=== PATIENT | female | born 1985 ===

== ENCOUNTER 2020-08-07 06:18 | Outpatient (REF) | payer OTHER, SELFPAY | END 2020-08-07 06:19 | disposition home or self-care (01) | LOC: HO.LAB 06:18 | PROVIDERS: PCP Internal Medicine; Visit Provider Internal Medicine | DX: Z20.828 Contact with and (suspected) exposure to other viral communicable diseases (principal) | CPT/HCPCS: C9803; U0003 ==

== ENCOUNTER 2022-03-13 20:19 | Day surgery (SDC) | payer OTHER, SELFPAY ==
[2022-03-13] VITALS (11 sets, daily range): BP systolic 125–171; BP diastolic 75–106; PULSE 80–94; RESP 13–18; TEMP 36.6–36.8; O2SAT 97–100; BMI 34.4
--- NOTE | 2022-03-13 20:54 | ED.SKABFB ---
HPI - Skin/Abscess/Foreign Bdy General Chief complaint: Dyspnea Stated complaint: foreign object in esophagus Time Seen by Provider: 03/13/22 20:40 Source: patient Mode of arrival: ambulatory Limitations: no limitations History of Present Illness HPI narrative: 36-year-old female who presents emergency department for evaluation of a esophageal food impaction. Patient states she was eating beef tips. She states that she did eat a large piece of meat that got immediately stuck in her throat she states she coughed and felt like she was choking. She currently is having difficulty swallowing her saliva and she cannot drink any liquids. She points to her mid chest when she is asked to localize the discomfort. She describes it as a constant, pressure sensation which is moderate to severe in intensity. Patient states she has been experiencing heartburn like symptoms over the past 2 months. She states she has had some difficulty swallowing solids but not liquids. She has never had a food impaction before. She states that over the last year she has gained 40 lb. complaint: foreign body Onset (ago): hour(s) (1) Location: chest (S often) Severity: severe Severity scale (1-10): 8 Quality: other (Pressure) Pain Consistency: constant Relieving factors: none Exacerbating factors: other (Drinking fluid) Context: other (Patient has swelled large piece of meat) Associated symptoms: nausea Treatments prior to arrival: none Related Data Previous Rx's Medication Instructions Recorded Adderall XR 25 mg capsule,extended 25 mg PO DAILY #28 caps 01/31/22 release (dextroamphetamine-amphetamine) Allergies Allergy/AdvReac Type Severity Reaction Status Date / Time No Known Allergies Allergy Mild NOT Verified 01/31/22 14:25 APPLICABLE Review of Systems Review of Systems: Yes all other systems are reviewed and are negative [facility] Past Medical History [facility] Narrative: Social history: She denies tobacco use. She states that she drinks 1 alcoholic beverage a per week. She denies drug use. Medical History ADHD Obesity (BMI 30-39.9) Surgical History History of section Family History Family History Father No problems noted. Mother No problems noted. Maternal Grandfather Lung cancer Social History Social History Housing: House Patient Tobacco Use Status: Never used Tobacco e-Cigarette/Vaping Use: Never Used Second Hand Smoke Exposure: No Patient : No service: No Current occupational status: employed Cognitive needs: No Hearing needs: No Vision needs: No Physical Exam Vital Signs: Vital Signs: Last Vital Signs Pulse 80 03/13/22 22:02 Resp 13 03/13/22 22:02 BP 171/106 H 03/13/22 21:43 Pulse Ox 99 03/13/22 22:02 O2 Del Method 03/13/22 22:02 BMI result Body Mass Index 34.4 Const: Other: Awake, alert, female patient, she appears to be anxious, she appears to be in distress secondary to her chest pain Orientation/consciousness: oriented to person and oriented to place HEENT: Head: Yes normal to inspection, Yes normocephalic and Yes atraumatic Ears: external ears normal General nose exam: Normal external nose present Face and sinus: Yes normal facial exam Mouth: Normal oral and palatal mucosa present Throat: Yes posterior oropharynx normal Eyes: General: appearance normal, both eyes and all related structures Pupils: Equal, round and reactive pupils present Neck: Neck: Yes normal visual inspection, Yes no lymphadenopathy, Yes trachea midline and Yes supple Chest: Chest palpation & inspection: normal inspection of the chest and normal palpation of entire chest wall Resp: Effort & Inspection: normal respiratory effort and able to speak in complete sentences Auscultation: clear to auscultation bilaterally Cardio: Rate: regular rate Rhythm: regular rhythm Heart sounds: S1 normal heart sound present, S2 normal heart sound present and no murmurs GI: Inspection: Yes normal to inspection Palpation (GI): Soft to palpation, nontender and no guarding Auscultation: normal bowel sounds : General: Yes no CVA tenderness Back/Spine/Pelvis: Back: no CVA tenderness Skin: General skin exam: no rashes or lesions noted Neuro: General: oriented to person and oriented to place Cranial nerves: Yes Equal, round and reactive pupils present Cognition (Neuro): normal cognition Motor exam (neuro): 5/5 motor strength present throughout Extrem: General: Yes normal to inspection Psych: Appearance: grossly normal Speech and movement: Normal speech and movement present Affect: normal affect Attitude: cooperative Thought process: Normal thought process present Thought content: Normal thought content present Course Course Course Narrative: 2057: 36-year-old female who presents emergency department for evaluation of esophageal food impaction after eating a large piece of steak, this occurred 1 hour prior to coming to the emergency department. Patient states she has had increased heartburn symptoms over the past 2 months but has not taken any antacids. She has had difficulty swallowing solids but not liquids. This is her 1st episode of a esophageal food impaction. She has had a 40 lb weight gain over 1 year. She did appear to be anxious and in distress secondary to her chest discomfort. I ordered Ativan 1 mg IV, morphine 4 mg IV and normal saline x1 L. I did discuss the patient's presentation with the covering gastrologist, Dr. Colon. He is going to come to the emergency department, evaluate the patient take the patient to endoscopy. The patient will be kept NPO. 2206: The patient got some relief of her discomfort with the above medications. The patient will be transferred to surgery and will be dispositioned from the recovery room. MDM - Skin/Abscess/Foreign Bdy Lab Data Result diagrams: 03/13/22 21:03 03/13/22 21:03 Labs: Lab Results 03/13/22 03/13/22 03/13/22 Range/Units 21:03 21:03 21:03 WBC 8.9 (4.8-10.8) X10*3/uL RBC 4.92 (4.20-5.50) X10*6/uL Hgb 14.0 (12.0-16.0) g/dl Hct 42.0 (37.0-47.0) % MCV 85.4 (80.0-98.0) fL MCH 28.5 (27.0-33.0) pg MCHC 33.3 (31.0-35.0) g/dl RDW 12.4 (11.0-16.0) % Plt Count 270 (160-400) X10*3/uL MPV 9.8 (9.4-12.3) fL Immature Gran % (Auto) 0.2 (0.0-0.4) % Neut % (Auto) 65.3 (45-73) % Lymph % (Auto) 25.8 (20-40) % [place] % (Auto) 5.2 (2-11) % Eos % (Auto) 3.1 (0-4) % Baso % (Auto) 0.4 (0-2) % Lymph # (Auto) 2.3 (1.2-4.9) X10*3/uL [place] # (Auto) 0.5 (0.1-1.2) X10*3/uL Eos # (Auto) 0.3 (0.0-0.4) X10*3/uL Baso # (Auto) 0.0 (0.0-0.2) X10*3/uL Abs Immat Gran (auto) 0.02 (0.00-0.03) X10*3/uL Absolute Neuts (auto) 5.8 (2.0-8.3) x10*3/uL Absolute Nucleated RBC 0.000 (0.0-0.012) X10*3/uL Nucleated RBC % (auto) 0.0 (0.0-0.2) /100WBC Sodium 140 (135-145) mmol/L Potassium 4.5 (3.3-5.1) mmol/L Chloride 103 (96-108) mmol/L Carbon Dioxide 29 (22-29) mmol/L Anion Gap 13 (12-20) BUN 11 (9-16) mg/dL Creatinine 0.87 (0.5-1.4) mg/dL Estim Creat Clear Calc 108.5 Estimated GFR > 60 Random Glucose 140 H (60-115) mg/dL Calcium 9.6 (8.4-10.2) mg/dL Total Bilirubin 0.2 (0.0-1.0) mg/dL AST 25 (5-31) U/L ALT 41 H (0-31) U/L Alkaline Phosphatase 83 (39-117) U/L Total Protein 7.3 (6.5-8.0) g/dL Albumin 4.7 (3.5-5.0) g/dL COVID-19 (MANE) Negative (Negative) COVID-19 Clin Com See Note Discharge Plan Discharge Clinical Impression: Esophageal obstruction due to food impaction Patient Disposition: Xfer Other Transfer Details: Transfer to surgery Prescriptions: No Action dextroamphetamine-amphetamine [Adderall XR] 25 mg capsule,extended release 24hr 25 mg PO DAILY Qty: 28 0RF
[2022-03-13 21:13] LABS: MANUAL DIFF FLAG NO
[2022-03-13 21:18] LABS: Basophils Percent Auto 0.4 % (0-2); Eosinophils Absolute Auto 0.3 X10*3/uL (0.0-0.4); Eosinophils Percent Auto 3.1 % (0-4); Imm Gran Abs Auto 0.02 X10*3/uL (0.00-0.03); Imm Gran Pct Auto 0.2 % (0.0-0.4); Lymphocytes Absolute Auto 2.3 X10*3/uL (1.2-4.9); Lymphocytes Percent Auto 25.8 % (20-40); Mean Corpuscular HGB Conc 33.3 g/dl (31.0-35.0); Mean Corpuscular Hemoglobin 28.5 pg (27.0-33.0); Mean Corpuscular Volume 85.4 fL (80.0-98.0); Mean Platelet Volume 9.8 fL (9.4-12.3); Monocytes Absolute Auto 0.5 X10*3/uL (0.1-1.2); Monocytes Percent Auto 5.2 % (2-11); Neutrophils Absolute Auto 5.8 x10*3/uL (2.0-8.3); Neutrophils Percent Auto 65.3 % (45-73); Platelet Count 270 X10*3/uL (160-400); Red Blood Count 4.92 X10*6/uL (4.20-5.50); Red Cell Distribution Width 12.4 % (11.0-16.0); White Blood Count 8.9 X10*3/uL (4.8-10.8)
[2022-03-13 21:30] LABS: Alanine Aminotransferase 41 U/L (0-31); Albumin Level 4.7 g/dL (3.5-5.0); Alkaline Phosphatase 83 U/L (39-117); Anion Gap 13 (12-20); Aspartate Amino Transferase 25 U/L (5-31); Bilirubin Total 0.2 mg/dL (0.0-1.0); Blood Urea Nitrogen 11 mg/dL (9-16); Calcium 9.6 mg/dL (8.4-10.2); Carbon Dioxide 29 mmol/L (22-29); Chloride 103 mmol/L (96-108); Creatinine Clr Calc Pharmacy 108.5; Estimated Glomerular Filt Rate > 60; Glucose Random 140 mg/dL (60-115); Potassium 4.5 mmol/L (3.3-5.1); Sodium 140 mmol/L (135-145); Total Protein 7.3 g/dL (6.5-8.0)
[2022-03-13 21:33] LABS: COVID-19 Test Negative (Negative)
[2022-03-13] MEDS: Morphine Sulfate 4 MG/ML CARTRIDGE IVPUSH (21:39)
[2022-03-13] MEDS: LORazepam 2 MG/ML VIAL 1 MG IVPUSH (21:39)
[2022-03-13] MEDS: 0.9 % Sodium Chloride 1,000 ML 999 ML IV (21:39)
--- NOTE | 2022-03-13 21:56 | HO.ANESPROP2 ---
[facility] Active Problems Active Problems: All Active Problems (Updated 10/18/21 @ 13:46 by Rasheed Root MD) Cervical cancer screening (Acute) Generalized anxiety disorder (Acute) Obesity (BMI 30-39.9) (Acute) ADHD (Acute) Past Medical History Medical History ADHD Obesity (BMI 30-39.9) Functional capacity: independent ambulation Patient : No Family History Family History Father No problems noted. Mother No problems noted. Maternal Grandfather Lung cancer Family history of problems with anesthesia: No Surgical History Surgical History History of section History of Problems with Anesthesia: No Social History Social History Housing: House Patient Tobacco Use Status: Never used Tobacco e-Cigarette/Vaping Use: Never Used Second Hand Smoke Exposure: No service: No Current occupational status: employed Cognitive needs: No Hearing needs: No Vision needs: No Meds Allergies Allergy/AdvReac Type Severity Reaction Status Date / Time No Known Allergies Allergy Mild NOT Verified 01/31/22 14:25 APPLICABLE Exam Exam Date and Time: March 13, [id number] Height,Weight and Vital Signs: Height 5 ft 7 in Weight 99.79 kg Last Vital Signs Pulse 89 03/13/22 21:43 Resp 14 03/13/22 21:43 BP 171/106 H 03/13/22 21:43 Pulse Ox 100 03/13/22 21:43 O2 Del Method 03/13/22 21:43 Pertinent Lab Results Pertinent Lab Results: Laboratory Tests 03/13/22 03/13/22 03/13/22 21:03 21:03 21:03 WBC 8.9 RBC 4.92 Hgb 14.0 Hct 42.0 MCV 85.4 MCH 28.5 MCHC 33.3 RDW 12.4 Plt Count 270 MPV 9.8 Immature Gran % (Auto) 0.2 Neut % (Auto) 65.3 Lymph % (Auto) 25.8 [place] % (Auto) 5.2 Eos % (Auto) 3.1 Baso % (Auto) 0.4 Lymph # (Auto) 2.3 [place] # (Auto) 0.5 Eos # (Auto) 0.3 Baso # (Auto) 0.0 Abs Immat Gran (auto) 0.02 Absolute Neuts (auto) 5.8 Absolute Nucleated RBC 0.000 Nucleated RBC % (auto) 0.0 Sodium 140 Potassium 4.5 Chloride 103 Carbon Dioxide 29 Anion Gap 13 BUN 11 Creatinine 0.87 Estim Creat Clear Calc 108.5 Estimated GFR > 60 Random Glucose 140 H Calcium 9.6 Total Bilirubin 0.2 AST 25 ALT 41 H Alkaline Phosphatase 83 Total Protein 7.3 Albumin 4.7 COVID-19 (MANE) Negative COVID-19 Clin Com See Note Assessment and Plan Final Anesthetic Review Family History of Problems with Anesthesia: No History of Problems with Anesthesia: No
--- NOTE | 2022-03-13 22:11 | MHC.SHP ---
Pre-Procedural Eval Section A Date of Service: 03/13/22 Section B Chief Complaint: foreign object in esophagus Details of Present Illness: see consult, and er notes Relevant Family History (Specify if Yes): No Relevant Social History: None Present Medications: see Short Stay Collaborative assessment Medical History: No relevant PMH History of Previous Operations: No relevant previous surgery Allergies: Allergies Allergy/AdvReac Type Severity Reaction Status Date / Time No Known Allergies Allergy Mild NOT Verified 01/31/22 14:25 APPLICABLE Review of Systems Sugical H&P ROS: Negative: Constitution, Cardiovascular, Respiratory, Neurological, Psychiatric, Hem-Onc, Allergic/Immunologic, Gastrointestinal, Genitourinary, Musculoskeletal, Integumentary, Endocrine and Eyes/Ears/Nose/Throat Exam Surgical H&P Exam: Normal: HEENT, Normal: Heart, Normal: Lungs, Normal: Extremities, Normal: Abdomen, Normal: Skin and Normal: Neurological Plan Diagnosis/Plan: Unchanged I have reviewed the history and physical and performed a pertinent physical examination on my patient. No changes have occurred unless specified.
--- NOTE | 2022-03-13 23:16 | CONS_ITS ---
DATE OF SERVICE: 03/13/2022 REFERRING PHYSICIAN: JULIO MORRISON REASON FOR CONSULTATION: Esophageal foreign body. HISTORY OF PRESENT ILLNESS: The patient is a pleasant 36-year-old woman, seen today in consultation after developing a meat impaction with esophageal obstruction about 1 hour prior to arrival at the emergency department. She was ingesting steak when this became lodged at her EG junction. Since that time, she has been unable to handle her secretions and unable to swallow. She was evaluated in the emergency department by Dr. Morrison. Lab work was done including electrolytes and CBC, which are reviewed. She was treated with glucagon with no improvement and the decision was made to proceed to an endoscopy. She also received morphine and lorazepam for anxiety and discomfort. PAST MEDICAL HISTORY: 1. ADHD with history of anxiety. 2. Elevated BMI. 3. sections CURRENT MEDICATIONS: Her current medication list is reviewed in the chart. At home she is on Adderall. ALLERGIES: THERE ARE NONE REPORTED. FAMILY HISTORY: Positive for irritable bowel syndrome, but no esophageal cancers. SOCIAL HISTORY: She uses marijuana, last earlier today. She denies use of other substances. REVIEW OF SYSTEMS: SKIN: No pruritus. HEENT: Negative. CARDIOPULMONARY: No shortness of breath or chest pain. GASTROINTESTINAL: As above. She has had some intermittent difficulty with solids over the past month, but no truly progressive dysphagia. She does get rare episodes of reflux, which does not require any treatment. GENITOURINARY: Negative. NEUROPSYCHIATRIC: Negative. PHYSICAL EXAMINATION: GENERAL: Shows a pleasant female, sitting comfortably in the stretcher, spitting into a bag. VITAL SIGNS: Stable. SKIN: Anicteric. HEENT: Shows no scleral icterus. NECK: Without lymphadenopathy or thyromegaly. LUNGS: Clear. HEART: Shows regular rate and rhythm. S1, S2. No murmur. ABDOMEN: Soft without focal masses or tenderness. Bowel sounds are present. No organomegaly is noted. EXTREMITIES: Without edema. LABORATORY DATA: Reviewed. IMPRESSION: Foreign body of the esophagus. I have discussed endoscopy with her including risks and benefits. She understands these and agrees to proceed. This will be done shortly. MD MCKAYLA Fowler/FERNANDA / [id number] [facility] HOSPITALSanjuana
--- NOTE | 2022-03-13 23:45 | PM.OP ---
Brief Operative Note Date of Service: 03/13/22 Pre-op diagnosis: esophageal fb Post-op diagnosis: same Procedure: EGD Surgeon: El Colon Anesthesia: MAC Was an Medical Billing Supervisor used for this Procedure?: No Estimated blood loss (mL): 2 Pathology: none sent Condition: stable Disposition: PACU
--- NOTE | 2022-03-14 02:42 | OP_ITS ---
SURGEON: El Colon MD INDICATIONS: Meat impaction with esophageal obstruction. PREOPERATIVE DIAGNOSIS: POSTOPERATIVE DIAGNOSIS: PROCEDURE PERFORMED: Upper endoscopy with removal of foreign body. ESTIMATED BLOOD LOSS: COMPLICATIONS: ANESTHESIA: ASSISTANTS: SPECIMENS: MEDICATIONS: General anesthesia. DESCRIPTION OF PROCEDURE: History and physical performed. The risks and benefits of the procedure were explained to the patient. Informed consent was obtained. The patient was placed in the left lateral decubitus position. The Olympus video gastroscope was introduced into the esophagus, stomach. Examination was performed. The scope was removed. She tolerated the procedure well. She returned to recovery area in stable condition. FINDINGS: 1. Esophagus: There was a large piece of meat obstructing the distal esophagus with some liquid and food above it. The food was suctioned as best possible along with the liquid and gentle pressure was used to push the food bolus into the stomach. There was some mild irritation at the EG junction from the food bolus with a small amount of bleeding that stopped very quickly. There was no stricture. There was no evidence of eosinophilic esophagitis. 2. Stomach: The stomach showed a large pool of undigested food and liquid in the fundus. For this reason, the duodenum was not examined. Reinspection of the EG junction after examining the stomach showed the irritation was very minor and the scope was removed from the patient with no complications. IMPRESSION: Esophageal obstruction, secondary to food bolus as above. RECOMMENDATIONS: 1. Follow up as needed. 2. The patient should stay on liquid diet for the rest of the evening. MD MCKAYLA Fowler/CRYSTALL / [id number]
== END 2022-03-13 23:30 | disposition home or self-care (01) ==
LOC: HO.ED 23:11 → HO.SSS 03-14 09:34
PROVIDERS: Emergency Provider Emergency Medicine Emergency Medical Services; PCP Internal Medicine; Visit Provider Internal Medicine Gastroenterology
PROC: 0DJ08ZZ Inspection of Upper Intestinal Tract, Via Natural or Artificial Opening Endoscopic (ICD-10-PCS; CPT 43235; principal; 2022-03-13 22:00)
DX: T18.128A Food in esophagus causing other injury, initial encounter (principal); X58.XXXA Exposure to other specified factors, initial encounter; Y93.89 Activity, other specified; Y92.9 Unspecified place or not applicable; Y99.8 Other external cause status; R13.14 Dysphagia, pharyngoesophageal phase; R06.09 Other forms of dyspnea; F41.9 Anxiety disorder, unspecified; Z20.822 Contact with and (suspected) exposure to COVID-19; F90.9 Attention-deficit hyperactivity disorder, unspecified type; E66.9 Obesity, unspecified; Z68.34 Body mass index [BMI] 34.0-34.9, adult; Z79.899 Other long term (current) drug therapy
CPT/HCPCS: 43247; 80053; 85025; 87635; 96374; 96375; 99285; J2060; J2270; J2405

== ENCOUNTER 2023-05-05 15:53 | Outpatient (AMB) | payer OTHER, SELFPAY ==
[2023-05-05 16:09] VITALS: BP 116/72; PULSE 78; O2SAT 98; BMI 34.9
--- NOTE | 2023-05-05 16:09 | MHC.PC.OV ---
Vital Signs 05/05/23 16:09 Height 5 ft 7 in Weight 223 lb BMI 34.9 BP 116/72 Blood Pressure Location Lt brachial Position Sitting Pulse 78 Pulse Source Pulse Oximeter Pulse Oximetry (%) 98 Oxygen Delivery Method Room Air Intake Visit Reasons: Follow up meds Allergies No Known Allergies Allergy (Mild, Verified 05/05/23 16:09) NOT APPLICABLE Medication List - Last Reconciled 05/05/23 by Rasheed Root MD dextroamphetamine-amphetamine 25 mg ER (Adderall XR) 25 mg PO DAILY semaglutide (weight loss) (Wegovy) 0.25 mg (0.5 mL) subcut QWEEK Tobacco use date assessed: 05/05/23 Dental Screening Dental Screen Date: 05/05/23 Did you have a dental visit in the last 12 months?: Yes Did you have a dental problem in the last 6 months where you did not have access to dental care?: No Was dental information given to patient?: Patient has dentist HPI Follow up meds HPI Details 37-year-old obese female with ADHD, Generalized anxiety disorder elevated blood sugar as well as liver function test coming in for follow-up. Patient was last seen in July 2022. Blood work was done in [facility] December 2022 showing low vitamin B12 normal liver function normal renal function normal thyroid low vitamin-D no anemia ultrasound of the liver showing hepatic steatosis the patient has started to lose the weight getting the coupons for Mounjaro at 7.5 but insurance would not cover. So the patient comes in to try to help. Patient did call and was told has to try to lose the weight more than 6 months and patient has been trying for more than 6 months. Patient does need a refill for the Adderall. [facility] Medical History (Updated 05/05/23 @ 16:29 by Rasheed Root MD) ADHD Cervical cancer screening Elevated blood sugar Esophageal obstruction due to food impaction LFT elevation Obesity (BMI 30-39.9) Surgical History History of section Family History (Updated 05/05/23 @ 16:10 by Christi Casey EMBOSSING PRESS OPERATOR APPRENTICE) Father No problems noted. Mother No problems noted. Maternal Grandfather Lung cancer Social History Housing: House Patient Tobacco Use Status: Never used Tobacco e-Cigarette/Vaping Use: Never Used Second Hand Smoke Exposure: No service: No Current occupational status: employed Cognitive needs: No Hearing needs: No Vision needs: No Questionnaire PHQ-9 Over the last 2 weeks, how often have you been bothered by any of the following problems? 1. Little interest or pleasure in doing things: nearly every day 2. Feeling down, depressed, or hopeless: nearly every day 3. Trouble falling or staying asleep, or sleeping too much: more than half the days 4. Feeling tired or having little energy: more than half the days 5. Poor appetite or overeating: several days 6. Feeling bad about yourself - or that you are a failure or have let yourself or your family down: several days 7. Trouble concentrating on things, such as reading the newspaper or watching television: not at all 8. Moving or speaking so slowly that other people could have noticed. Or the opposite - being so fidgety or restless that you have been moving around a lot more than usual: not at all 9. Thoughts that you would be better off or of hurting yourself in some way: not at all Total score: 12 Depression Screening Interpretation: Positive Source: Developed by Drs. Jax Montez, Nia Worley, Osman Haque and colleagues, with an educational kt from [employer]. Thrive Questionnaire Date Thrive assessed: 05/05/23 I am a: Patient What is your living situation today?: I have a steady place to live Within the past 12 months, did the food you bought not last and you didn't have the money to get more?: Never true Within the past 12 months, did you worry whether your food would run out before you got money to buy more?: Never true Do you have trouble paying for medicines?: No Do you have trouble getting transportation to medical appointments?: No Do you have trouble paying your heating and electricity bill?: No Do you have trouble taking care of your child, family member or friend?: No Do you have trouble with day-to-day activities such as bathing, preparing meals, shopping, managing finances, etc.?: No Are you currently unemployed and looking for a job?: No Are you interested in more education?: No Currently or been in a relationship where the following occur: no concerns reported AUDIT C Alcohol Use Questionnaire (AUDIT-C) 1. How often do you have a drink containing alcohol?: Monthly or less 2. How many drinks containing alcohol do you have on a typical day when you are drinking?: 1 or 2 3. How often do you have six or more drinks on one occasion?: Never Total Score: 1 KAYDEN-7 AMB Questionnaire KAYDEN-7 Date KAYDEN - 7 assessed: 05/05/23 Feeling nervous, anxious, or on edge: 1 = Several days Not being able to stop or control worryin = Several days Worrying too much about different things: 1 = Several days Trouble relaxin = Several days Being so restless that it is hard to sit still: 1 = Several days Becoming easily annoyed or irritable: 1 = Several days Feeling afraid as if something awful might happen: 1 = Several days Total KAYDEN-7 score (0-4 normal; 5-9 mild; 10-14 moderate; 15-21 severe): 7 Source: Developed by Drs. Jax Montez, Nia Worley, Osman Haque and colleagues, with an educational kt from [employer]. Physical exam (Primary Care) Vital Signs: Last Vital Signs Pulse 78 05/05/23 16:09 BP 116/72 05/05/23 16:09 Pulse Ox 98 05/05/23 16:09 Oxygen Delivery Method Room Air 05/05/23 16:09 BMI result Body Mass Index 34.9 Tobacco/Smoking Status: Tobacco use Status Tobacco use date assessed 05/05/23 05/05/23 16:16 Patient Tobacco Use Status Never used Tobacco 05/05/23 16:16 e-Cigarette/Vaping Use Never Used 05/05/23 16:16 PHQ-9: PHQ-9 Score PHQ-9: Total score 12 05/05/23 16:16 Depression Screening Interpretation: Positive Thrive Assessment: Date of Thrive Assessment Date Thrive assessed 05/05/23 05/05/23 16:16 Currently or been in a relationship where the following occur: no concerns reported Const General: alert; No acute distress Eyes Conjunctivae: conjunctivae normal Resp Auscultation: clear to auscultation bilaterally Cardio Rate: regular rate Rhythm: regular rhythm GI Inspection: Yes normal to inspection Extrem General: Yes normal to inspection and No edema Assessment and Plan Assessment & Plan (1) Fatty liver: Code(s): K76.0 - Fatty (change of) liver, not elsewhere classified Plan: Low-fat diet and exercise (2) Obesity (BMI 30-39.9): Code(s): E66.9 - Obesity, unspecified Plan: Continue to lose the weight with diet and exercise (3) ADHD: Code(s): F90.9 - Attention-deficit hyperactivity disorder, unspecified type Plan: Continue with the medication (4) Generalized anxiety disorder: Code(s): F41.1 - Generalized anxiety disorder Plan: Stable (5) Vitamin B12 deficiency: Code(s): E53.8 - Deficiency of other specified B group vitamins Plan: Vitamin B12 1000 mcg once a day (6) Vitamin D deficiency: Code(s): E55.9 - Vitamin D deficiency, unspecified Plan: Vitamin-D 2164-7470 units once a day Medications: New tirzepatide (Mounjaro) 7.5 mg (0.5 mL) subcut QWEEK 2 mL 2RF E66.9 - Obesity, unspecified, K76.0 - Fatty (change of) liver, not elsewhere classified Refilled dextroamphetamine-amphetamine 25 mg ER (Adderall XR) 25 mg PO DAILY 28 caps 0RF F90.9 - Attention-deficit hyperactivity disorder, unspecified type Discontinued semaglutide (weight loss) (Parvez) administer weeks 1 through 4 of therapy Discontinued Reason: Doctor's Order 0.25 mg (0.5 mL) subcut QWEEK 2 mL 1RF E66.9 - Obesity, unspecified Coding Level of Care Code Est Pt Level 4 (92545) Diagnoses Fatty liver K76.0 Obesity (BMI 30-39.9) E66.9 ADHD F90.9 Generalized anxiety disorder F41.1 Vitamin B12 deficiency E53.8 Vitamin D deficiency E55.9
== END 2023-05-05 17:04 | disposition home or self-care (01) ==
PROVIDERS: PCP Internal Medicine; Visit Provider Internal Medicine
DX: K76.0 Fatty (change of) liver, not elsewhere classified (principal); E66.9 Obesity, unspecified; Z68.34 Body mass index [BMI] 34.0-34.9, adult; E55.9 Vitamin D deficiency, unspecified; F90.9 Attention-deficit hyperactivity disorder, unspecified type; F41.1 Generalized anxiety disorder; E53.8 Deficiency of other specified B group vitamins
CPT/HCPCS: 99214

== ENCOUNTER 2023-08-06 11:11 | Outpatient (AMB) | payer OTHER, SELFPAY ==
[2023-08-06 11:12] VITALS: BP 124/72; PULSE 89; O2SAT 98; BMI 36.7
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
== END 2023-08-06 11:59 | disposition home or self-care (01) ==
PROVIDERS: PCP Internal Medicine; Visit Provider Internal Medicine
DX: F41.1 Generalized anxiety disorder (principal); E66.9 Obesity, unspecified; Z68.36 Body mass index [BMI] 36.0-36.9, adult; F90.9 Attention-deficit hyperactivity disorder, unspecified type; K76.0 Fatty (change of) liver, not elsewhere classified; E53.8 Deficiency of other specified B group vitamins
CPT/HCPCS: 99214

== ENCOUNTER 2024-02-04 10:16 | Outpatient (AMB) | payer OTHER, SELFPAY ==
[2024-02-04 10:17] VITALS: BP 110/88; PULSE 81; O2SAT 98
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
== END 2024-02-05 15:04 | disposition home or self-care (01) ==
PROVIDERS: PCP Internal Medicine; Visit Provider Internal Medicine
DX: F90.9 Attention-deficit hyperactivity disorder, unspecified type (principal); F41.1 Generalized anxiety disorder
CPT/HCPCS: 99214

== ENCOUNTER 2024-04-13 14:23 | Outpatient (AMB) | payer OTHER, SELFPAY ==
[2024-04-13 14:31] VITALS: BP 112/80; PULSE 92; O2SAT 96; BMI 36.0
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
== END 2024-04-13 15:06 | disposition home or self-care (01) ==
PROVIDERS: PCP Internal Medicine
DX: M25.511 Pain in right shoulder (principal); M54.2 Cervicalgia; Z04.3 Encounter for examination and observation following other accident; M54.9 Dorsalgia, unspecified; M25.512 Pain in left shoulder
CPT/HCPCS: 99214

== ENCOUNTER 2024-05-11 14:19 | Outpatient (AMB) | payer OTHER, SELFPAY ==
[2024-05-11 14:19] VITALS: BP 130/92; PULSE 69; O2SAT 97; BMI 36.2
--- NOTE | 2024-05-11 14:19 | MHC.PC.OV ---
Vital Signs 05/11/24 14:19 Height 5 ft 7 in Weight 231 lb BMI 36.2 BP 130/92 H Blood Pressure Location Lt brachial Position Sitting Pulse 69 Pulse Source Pulse Oximeter Pulse Oximetry (%) 97 Oxygen Delivery Method Room Air Intake Visit Reasons: follow up, MED review Ecdis N Navigation Operator Required: No Allergies No Known Allergies Allergy (Mild, Verified 05/11/24 14:22) NOT APPLICABLE Medication List - Last Reconciled 05/11/24 by Adali Chaudhary PA-C dextroamphetamine-amphetamine 25 mg ER (Adderall XR) 25 mg PO DAILY dextroamphetamine-amphetamine 5 mg ER (Adderall XR) 5 mg PO DAILY Tobacco use date assessed: 02/04/24 Dental Screening Dental Screen Date: 05/11/24 HPI follow up, MED review HPI Details 38-year-old female with past medical history of ADHD, generalized anxiety disorder, and fatty liver disease last seen by Dr. Root 01/2024 coming in for follow up. Patient is here for follow-up on Adderall medication. She feels this medication has been managing her ADHD very well. Her last prescription of the same medication was not as effective however the manufacture changed for this most recent prescription fell and she feels this was the most helpful. She has seen PT for her neck and back and mentioned the pain has been improving and does have a follow up appointment tomorrow. [facility] Medical History LFT elevation Elevated blood sugar Esophageal obstruction due to food impaction Cervical cancer screening Obesity (BMI 30-39.9) ADHD Surgical History History of section Family History Father No problems noted. Mother No problems noted. Maternal Grandfather Lung cancer Social History Housing: House Patient Tobacco Use Status: Never used Tobacco e-Cigarette/Vaping Use: Never Used Second Hand Smoke Exposure: No service: No Current occupational status: employed Cognitive needs: No Hearing needs: No Vision needs: No Questionnaire Thrive Questionnaire Date Thrive assessed: 05/05/23 AUDIT C Alcohol Use Questionnaire (AUDIT-C) 1. How often do you have a drink containing alcohol?: Monthly or less 2. How many drinks containing alcohol do you have on a typical day when you are drinking?: 1 or 2 3. How often do you have six or more drinks on one occasion?: Never Total Score: 1 KAYDEN-7 AMB Questionnaire KAYDEN-7 Date KAYDEN - 7 assessed: 04/13/24 Source: Developed by Drs. Jax Montez, Nia Worley, Osman Haque and colleagues, with an educational kt from [employer]). Review of Systems Const Denies body aches, Denies chills, Denies fever(s) and Denies poor appetite Eyes Reports no additional complaints ENT Reports no additional complaints Card Denies chest pain and Denies dyspnea Resp Denies dyspnea Reports no additional complaints Musc Reports as per HPI and Denies abnormal gait Skin/Breast Reports system reviewed and no additional complaints, except as documented Neuro Denies abnormal gait Psych Reports no additional complaints Physical exam (Primary Care) Vital Signs: Oxygen Delivery Method Room Air 05/11/24 14:19 BMI result Body Mass Index 36.2 Tobacco/Smoking Status: Tobacco use Status Tobacco use date assessed 02/04/24 05/04/24 11:56 Patient Tobacco Use Status Never used Tobacco 05/04/24 11:56 e-Cigarette/Vaping Use Never Used 05/04/24 11:56 Thrive Assessment: Date of Thrive Assessment Date Thrive assessed 05/05/23 05/04/24 11:56 Const General: cooperative, healthy appearing, comfortable and no acute distress Orientation/consciousness: patient oriented x3 [facility] Head: Yes normocephalic Ears: hearing grossly normal bilaterally General nose exam: Normal external nose present Eyes General: appearance normal, both eyes and all related structures Conjunctivae: conjunctivae normal Neck Neck: Yes full ROM and Yes no lymphadenopathy Resp Effort & Inspection: normal respiratory effort Auscultation: clear to auscultation bilaterally, no crackles, no rales, no rhonchi and no wheezes Cardio Rate: regular rate Rhythm: regular rhythm Skin General skin exam: no rashes or lesions noted Neuro General: patient oriented x3 Gait exam (Neuro): Normal gait present Extrem General: Yes normal to inspection, Yes full ROM and No edema Psych Affect: normal affect Attitude: cooperative Insight: Good insight present (Psych) Judgement: Good judgement present (Psych) Assessment and Plan Assessment & Plan (1) ADHD: Code(s): F90.9 - Attention-deficit hyperactivity disorder, unspecified type Plan: Patient felt this most recent prescription of Adderall was the most helpful. Advised patient to discuss with pharmacy about the manufacture and see if it is possible to continue prescribing from this specific manufacture. Continue on your current dose of medication and follow up in 3 months. Plan This note was constructed using voice recognition software. While every effort has been made to ensure accuracy and electric meter installer helper, still areas may have been included sometimes these areas may affect the content or meeting of the given symptoms. Total time spent caring for the patient today was 30 minutes. This includes time spent before the visit reviewing the chart, time spent during the visit, and time spent after the visit and documentation. Coding Level of Care Code Est Pt Level 3 (12805) Diagnoses ADHD F90.9
== END 2024-05-11 14:46 | disposition home or self-care (01) ==
PROVIDERS: PCP Internal Medicine
DX: F90.9 Attention-deficit hyperactivity disorder, unspecified type (principal)
CPT/HCPCS: 99213

== ENCOUNTER 2024-11-04 12:58 | Outpatient (AMB) | payer OTHER, SELFPAY ==
[2024-11-04 13:10] VITALS: BP 102/90; PULSE 95; TEMP 36.3; O2SAT 96; BMI 35.3
--- NOTE | 2024-11-04 13:10 | MHC.PC.OV ---
Vital Signs 11/04/24 13:10 Height 5 ft 7 in Weight 225 lb 4 oz BMI 35.3 BP 102/90 H Blood Pressure Location Lt brachial Position Sitting Pulse 95 Pulse Source Pulse Oximeter Temp 97.3 F Temp Source Temporal Artery Scan Pulse Oximetry (%) 96 Oxygen Delivery Method Room Air Intake Visit Reasons: 3M Follow Up Intake Note: Pt is here for routine FU. 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 Accompanied by: Self / Same As Patient Allergies No Known Allergies Allergy (Mild, Verified 11/04/24 13:12) NOT APPLICABLE Tobacco use date assessed: 11/04/24 Dental Screening Dental Screen Date: 11/04/24 Did you have a dental visit in the last 12 months?: Yes Did you have a dental problem in the last 6 months where you did not have access to dental care?: No Was dental information given to patient?: Patient has dentist [facility] Medical History LFT elevation Elevated blood sugar Esophageal obstruction due to food impaction Cervical cancer screening Obesity (BMI 30-39.9) ADHD Surgical History History of section Family History Father No problems noted. Mother No problems noted. Maternal Grandfather Lung cancer Social History Housing: House Patient Tobacco Use Status: Never used Tobacco e-Cigarette/Vaping Use: Never Used Second Hand Smoke Exposure: No service: No Current occupational status: employed Cognitive needs: No Hearing needs: No Vision needs: No Questionnaire PHQ-9 Over the last 2 weeks, how often have you been bothered by any of the following problems? 1. Little interest or pleasure in doing things: not at all 2. Feeling down, depressed, or hopeless: not at all 3. Trouble falling or staying asleep, or sleeping too much: not at all 4. Feeling tired or having little energy: not at all 5. Poor appetite or overeating: not at all 6. Feeling bad about yourself - or that you are a failure or have let yourself or your family down: not at all 7. Trouble concentrating on things, such as reading the newspaper or watching television: not at all 8. Moving or speaking so slowly that other people could have noticed. Or the opposite - being so fidgety or restless that you have been moving around a lot more than usual: not at all 9. Thoughts that you would be better off or of hurting yourself in some way: not at all Total score: 0 Depression Screening Interpretation: Negative Depression Screening Done: Yes 96832 - PHQ-9 Billing: Yes Source: Developed by Drs. Jax Montez, Nia Worley, Osman Haque and colleagues, with an educational kt from [employer]. Thrive Questionnaire Date Thrive assessed: 11/04/24 I am a: Patient What is your living situation today?: I have a steady place to live Within the past 12 months, did the food you bought not last and you didn't have the money to get more?: Never true Within the past 12 months, did you worry whether your food would run out before you got money to buy more?: Never true Do you have trouble paying for medicines?: No Do you have trouble getting transportation to medical appointments?: No Do you have trouble paying your heating and electricity bill?: No Do you have trouble taking care of your child, family member or friend?: No Do you have trouble with day-to-day activities such as bathing, preparing meals, shopping, managing finances, etc.?: No Are you currently unemployed and looking for a job?: No Are you interested in more education?: No Please select the resources that you would like help with: None Currently or been in a relationship where the following occur: No concerns reported THRIVE Score: 0 AUDIT C Alcohol Use Questionnaire (AUDIT-C) 1. How often do you have a drink containing alcohol?: Monthly or less 2. How many drinks containing alcohol do you have on a typical day when you are drinking?: 1 or 2 3. How often do you have six or more drinks on one occasion?: Never Total Score: 1 KAYDEN-7 AMB Questionnaire KAYDEN-7 Date KAYDEN - 7 assessed: 11/04/24 Feeling nervous, anxious, or on edge: 0 = Not at all Not being able to stop or control worryin = Not at all Worrying too much about different things: 0 = Not at all Trouble relaxin = Not at all Being so restless that it is hard to sit still: 0 = Not at all Becoming easily annoyed or irritable: 0 = Not at all Feeling afraid as if something awful might happen: 0 = Not at all Total KAYDEN-7 score (0-4 normal; 5-9 mild; 10-14 moderate; 15-21 severe): 0 Source: Developed by Drs. Jax Montez, Nia Worley, Osman Haque and colleagues, with an educational kt from [employer]. KAYDEN-7 Assessment Billing KAYDEN-7 Assessment Tool: KAYDEN-7 Assessment 86404 Physical exam (Primary Care) Vital Signs: Last Vital Signs Temp 97.3 F 11/04/24 13:10 Pulse 95 11/04/24 13:10 BP 102/90 H 11/04/24 13:10 Pulse Ox 96 11/04/24 13:10 Oxygen Delivery Method Room Air 11/04/24 13:10 BMI result Body Mass Index 35.3 Tobacco/Smoking Status: Tobacco use Status Tobacco use date assessed 11/04/24 11/04/24 13:13 Patient Tobacco Use Status Never used Tobacco 11/04/24 13:13 e-Cigarette/Vaping Use Never Used 11/04/24 13:13 PHQ-9: PHQ-9 Score PHQ-9: Total score 0 11/04/24 13:20 Depression Screening Interpretation: Negative Thrive Assessment: Date of Thrive Assessment Date Thrive assessed 11/04/24 11/04/24 13:19 Currently or been in a relationship where the following occur: No concerns reported Const General: alert; No acute distress Eyes Conjunctivae: conjunctivae normal Resp Auscultation: clear to auscultation bilaterally Cardio Rate: regular rate Rhythm: regular rhythm GI Inspection: Yes normal to inspection Extrem General: Yes normal to inspection and No edema Coding Level of Care Code Est Pt Level 4 (89852) Complex EM visit Add On G2211 Diagnoses ADHD F90.9 Obesity (BMI 30-39.9) E66.9 Generalized anxiety disorder F41.1 Vitamin B12 deficiency E53.8 Blood pressure elevated without history of HTN R03.0 Impaired fasting blood sugar R73.01 Additional Codes KAYDEN-7 Assessment Billing - KAYDEN-7 Assessment Tool: KAYDEN-7 Assessment 00731 ([id number]) PHQ-9 - 27829 - PHQ-9 Billing: Yes ([id number]) Assessment & Plan Assessment & Plan (1) ADHD: Code(s): F90.9 - Attention-deficit hyperactivity disorder, unspecified type Category: Medical Plan: Continue with present ADHD medication. (2) Obesity (BMI 30-39.9): Code(s): E66.9 - Obesity, unspecified Category: Medical Plan: Continue with diet and exercise (3) Generalized anxiety disorder: Code(s): F41.1 - Generalized anxiety disorder Category: Medical Plan: Stable (4) Vitamin B12 deficiency: Code(s): E53.8 - Deficiency of other specified B group vitamins Category: Medical Plan: Discussed about vitamin B12 replacement as well as vitamin-D (5) Blood pressure elevated without history of HTN: Code(s): R03.0 - Elevated blood-pressure reading, without diagnosis of hypertension Category: Medical Plan: Advised to monitor blood pressure outside and record and discussed the proper way of taking the blood pressure. Please record and follow-up with the list of blood pressures (6) Impaired fasting blood sugar: Code(s): R73.01 - Impaired fasting glucose Category: Medical Plan: Hemoglobin A1c was 5.8. Decrease the amount of carbohydrate intake, pasta, bread, rice and potatoes are all sugar and that is aside from all the sweet stuff, remember that fruits are good but they are Sweet also. Plan History of Present Illness The patient is a 38-year-old female presenting with concerns related to weight management, ADHD, generalized anxiety disorder, and vitamin deficiencies. The patient reports a weight loss of 6 pounds in the context of obesity. She has a history of ADHD and anxiety, with continuous medication management being pivotal in her treatment. Previous blood tests from December 2022 reveal vitamin B12 deficiency and vitamin D deficiency, with normal glycaemic control as per her hemoglobin A1c results, though her values indicate a pre-diabetic state. Hypertension has been suggested due to elevated diastolic pressures noted on more than one occasion, requiring monitoring and potential intervention. Lifestyle factors including recent significant weight gain due to stressors further complicate her obesity management. Treatment options were discussed, including dietary, exercise, and possible pharmacological interventions such as Zepfound, given the previous positive response to Mounjaro. Health Maintenance - Discussed vitamin B12 replacement therapy. - Discussed vitamin D supplementation. - Encouraged adherence to a balanced diet and regular exercise. - Reviewed her normal hemoglobin A1c from December 2022, indicating pre-diabetes. - Discussed excluding refined carbohydrates and monitoring blood pressure regularly. - Advised on potential pharmacotherapy for obesity management. - Provided caution regarding seasonal influenza, COVID-19, and RSV risks. Social History - Reports weight gain of 15 pounds in a month due to stress. - Indicates diet includes carbohydrate-rich foods such as pasta, bread, and rice. - Engages in discussions around weight management strategies. - Challenged by lifestyle factors impacting obesity and mental health management. Review of Systems - Cardiovascular: Reports previous elevations in blood pressure measurements. - Endocrine: Denies symptoms inconsistent with present vitamin deficiencies. Physical Exam Results - Labs: Vitamin B12 deficiency noted in December 2022. - Labs: Vitamin D deficiency noted in December 2022. - Labs: Hemoglobin A1c was normal in December 2022. - Labs: Normal glucose levels noted in December 2022. - Labs: Normal kidney function noted in December 2022. - Labs: Normal electrolytes noted in December 2022. - Labs: Normal liver function noted in December 2022. - Labs: Normal thyroid function noted in December 2022. Plan The patient will continue with her ADHD medication as part of her weight management strategy, and dietary and exercise modifications remain a cornerstone of her obesity treatment. Prescribing Zepfound was agreed upon, given previous success with Mounjaro, pending insurance clearance. Management of vitamin deficiencies will include vitamin and vitamin D supplementation. Her borderline hemoglobin A1c level will be monitored to manage pre-diabetes, and dietary advice centered on reducing refined carbohydrates was provided. To address elevated blood pressure concerns, regular home monitoring is advised to capture more accurate readings, with revisiting these findings planned in follow-up visits. Patient was informed and verbally consented to the use of an ambient scribe for clinic note documentation during this visit. Discussion Notes We discussed the patient's obesity, ADHD, generalized anxiety disorder, vitamin B12 and D deficiencies, pre-diabetes, and elevated blood pressure. In light of her previous positive response to Mounjaro, the option of Zepfound was explored without guarantee of insurance coverage, followed by a potential referral for weight management services if necessary. The patient is advised to monitor her blood pressure at home and limit refined carbohydrate intake. The significance of vitamin replacement therapy was emphasized, and preventive considerations against seasonal respiratory viruses were addressed. Follow-up was strategized for review and adaptation of the current management plan as required. Patient Instructions - Continue with current ADHD medications as directed. - Adhere to dietary changes recommended, focusing on reducing refined carbohydrate intake. - Engage in regular physical exercise per advice. - Start vitamin B12 and vitamin D supplementation. - Monitor blood pressure regularly at home. - Be aware of the importance of seasonal vaccinations and preventive measures against respiratory illnesses. Medications: New tirzepatide (weight loss) (Zepbound) for 4 weeks 2.5 mg (0.5 mL) subcut QWEEK 2 mL 1RF E66.9 - Obesity, unspecified
--- OUTSIDE RECORDS SUMMARY | 2024-11-04 15:24 | XMS_ITS ---
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
--- OUTSIDE RECORDS SUMMARY | 2024-11-04 15:24 | XMS_ITS ---
Author Organization [facility] Address [address] [place] [address] Care Team Providers Care Apartment Maintenance Name Role Phone OLIMPIAANGLE SCHULTZ Unavailable [phone] ALLERGIES No Known Allergies REASON FOR VISIT Pt seen in office for wt mgt consult with WILLIAM. MEDICATIONS Medication SIG (Take, Route, Frequency, Duration) Notes Start Date End Date Status Vyvanse 30 MG 1 capsule in the mor kuldip Orally Once a day Active Ozempic (1 MG/DOSE) 4 MG/3ML 1mg Subcutaneous weekly for 30 days 09/03/2023 Active PROBLEMS Problem Type ICD Code Onset Dates Problem Status W/U Status Risk SNOMED Code Notes Problem Other obesity due to excess calories (E66.09) Active confirmed 576155195 Problem Body mass index [BMI] 37.0-37.9, adult (Z68.37) Active confirmed [id number] VITAL SIGNS Blood pressure systolic 142 mm Hg 09/03/20 23 Blood pressure diastolic 86 mm Hg 023 Heart Rate 98 /min 09/03/2023 Height 67 in 09/03/2023 Weight 238 lbs 09/03/2023 BMI 37.27 kg/m2 09/03/2023 Oximetry 99 % 09/03/2023 Encounters Encounter Location Date Provider Diagnosis [facility] [address] [address] 09/03/2023 ANGLE GARCIA Other obesity due to excess calories E66.09 and Body mass index [BMI] 37.0-37.9, adult Z68.37 ASSESSMENTS Encounter Date Diagnosis Assessment Notes Treatment Notes Treatment Clinical Notes Section Notes 09/03/2023 Other obesity due to excess calories (ICD-10 - E66.09) Total time spent today was 60 minutes of which greater than 50% was spent on coordinating and counseling We are a board certified obesity and weight management practice Patient has trialed behavioral modification, dietary restrictions and exercise for a minimum of 3 months The most recent [place] Association of clinical endocrinologists and [employer] [employer]in[employer] guidelines recommend the patients who have overweight BMI or obesity BMI, who also have metabolic syndrome, prediabetes, or at risk of developing type 2 diabetes should aim for a weight loss goal of at least 10% of the baseline body weight Patient counseled regarding effects of GLP/GIP-1 agonists, and other FDA approved wgt loss meds with regards to a multifactorial approach of weight loss as mentioned above and not solely appetite suppression. We have discussed the mechanism of GLP-1's/GIP, dual incretins I think this would be fantastic option for her given her metabolic workup and body composition We have discussed the risks and benefits and side effects including/and not limited to Sarcopenia, intestinal obstruction, constipation, nausea, lethargy, headache Discussed importance of protein consumption for muscle maintenance as well as strength and resistance training ,probiotics, B12 complex biotin , iron and other nutrients, To help avoid telogen effluvium There is no history of medullary thyroid cancer or multiple endocrine neoplasia There is also no history of cardiovascular disease, hypertension, palpitations, or arrhythmias In the setting of potential stimulant/amphetami ne use such as phentermine We have also discussed risks and benefits, and the use of compounded medications to help offset the national shortages as well as financial implications vs trade name drugs GLP must be discontinued upon initiation We have discussed the lifelong requirement of nutritional supplementation And adherence to an exercise regimen as well as importance of follow-up The patient understands and agrees Patient has been found to be obese with a BMI of (37). Patient has class (2) obesity. Patient was reassured and welcomed to the practice. We discussed that we stress a hollistic medical approach with emphasis on lifestyle modification. Patient was informed that a healthy lifestyle with exercise and good eating habits can help reduce his risk of medical complications. He is explained that obesity increases his risk of diabetes, cardiovascular disease, or organ damage. We spent a lot of time discussing the relationship between food, exercise, sleep, mental health and obesity. Patient was counseled on the importance EATING local, organic food when possible. Patient was educated on clean 15 and dirty dozen. I provided information about reading books called The Food Rules by Crispin Richards and Eat Fat Get Lean by Dr Shukri Jimenez. Self education is important in the journey for weight management. Patient was offered diagnostic testing. We want to measure visceral adiposity, advanced body composition, adverse lipids, fatty acid balance, risk for heart disease and atherosclerosis, markers of inflammation and genetic susceptibility. Patient was counseled on weight management and was advised to lose weight using A. Meal Replacement Products We discussed the lifelong requirement of nutritional supplementation and adherence to an exercise regimen as well as importance of dietary f/u Patient was educated on the replacement products called optifast. This is a good way of taking fixed amount of calories. It has been shown in studies to be ineffective weight management tool. We also recommend maintaining adequate protein intake and muscle composition, 1.5mg/kg This however has to be coupled with lifestyle intervention as well as laboratory data and EKG monitoring. It is impossible to know how a person will tolerate complete meal replacement. The side effects of meal replacement and weight loss could include syncopal attacks, dizziness, gallstones, potential cholecystectomy, possible heart attack and even . The benefits of meal replacement would be potential weight loss but no guarantees can be made. Meal replacement products are not covered by insurance. Once the patient has bought these products we cannot return them B. Lifestyle management which includes several strategies as below 1. Eat a low carbohydrate good fat good protein diet. Eliminate refined carbohydrates from the diet. Continue blood sugar and sugared beverages. Eat local organic when possible. Cook your own meals. Read food labels. None about healthy snacks. Portion control and food with low glycemic index 2. Exercise regularly. Try to get at least 6000 steps a day. Use a predominant to track activity level. Consider using apps like [employer], [employer], lose it, stick as needed for self-monitoring and weight management. Consider group exercises. Consider hiring a personal lines appraiser. Regular exercise is acevedo to sustainable health and prevents as a buffer against weight regain 3. Sleep is most important for healing. Tried to sleep at least 8 hours a night. A good quality sleep needs a sleep ritual with ideal room temperature of around 68. It might help to take a shower and have no electronics in the room and sleep in a very dark room without artificial light. Start her sleep routine and get up early in the morning and go to bed on time 4. Make a social connection. Surround yourself with positive people with positive energy. Connect with friends and family. 5. Get into the habit of meditating and mindfulness while doing everything. 6. Go outside and connect with nature. C. Prescription medications Patient was educated on the use of prescription medications for medical weight loss. This is a growing list and includes phentermine, Topamax,Qsymia, contrave, belviq and saxenda, wegovy All prescription medications could have side effects including but not limited to kidney stones, seizure disorder cardiac arrhythmias heart attack pancreatitis etc. etc.. Patient was encouraged to read the prescription insert and have coaching with their pharmacist and make an informed decision about taking medication and know that these medications are being prescribed with good intentions and we do not know how a patient would react to her medication. Sudden medications are FDA approved for weight loss and there is also off label use depending on patient's inability to afford medications in an attempt to lose weight D. Behavioral counseling was done to establish a relationship between food and an mood. Patient was provided information about local counseling and psychiatry and Dr Billingsley at [facility]. We would like to cover regular topics and build on low glycemic eating exercise mindful eating, using yoga and meditation along with deep breathing and connecting with friends and family. E. MASS PAT reviewed, Patient's current medications were reviewed and opinion was given on medication that can cause weight gain and can be substituted F. Patient was assessed for risk with obesity including and not limiting to atherosclerosis heart disease stroke kidney disease, restrictive lung disease, irritable bowel syndrome and overall mortality. Risk of developing prediabetes diabetes and metabolic syndrome was discussed G. Therapeutic plan: We have decided to make therapeutic plan which would include choosing wisely on calories restricting portion getting active, tracking weight, getting good quality sleep and working on time management H. Patient will follow up in (4) weeks for weight management Of note, some information is being carried forward from prior records for informational purposes only and is being cited so that efficiency, safety and quality of the patient's care is not compromised This note was prepared using voice recognition software and direct typing Please excuse inadvertent dependency program director or typing errors, or uncorrected word substitutions Although every attempt has been made by the provider to proofread this document, occasional misspellings and typographical errors may still be present Due to the previous pandemic, and the use of personal protective equipment (PPE) This may decrease voice recognition accuracy Inadvertent dependency program director errors may occur 09/03/2023 Body mass index [BMI] 37.0-37.9, adult (ICD-10 - Z68.37) Total time spent today was 60 minutes of which greater than 50% was spent on coordinating and counseling We are a board certified obesity and weight management practice Patient has trialed behavioral modification, dietary restrictions and exercise for a minimum of 3 months The most recent [place] Association of clinical endocrinologists and [place] [employer] endocrinology guidelines recommend the patients who have overweight BMI or obesity BMI, who also have metabolic syndrome, prediabetes, or at risk of developing type 2 diabetes should aim for a weight loss goal of at least 10% of the baseline body weight Patient counseled regarding effects of GLP/GIP-1 agonists, and other FDA approved wgt loss meds with regards to a multifactorial approach of weight loss as mentioned above and not solely appetite suppression. We have discussed the mechanism of GLP-1's/GIP, dual incretins I think this would be fantastic option for her given her metabolic workup and body composition We have discussed the risks and benefits and side effects including/and not limited to Sarcopenia, intestinal obstruction, constipation, nausea, lethargy, headache Discussed importance of protein consumption for muscle maintenance as well as strength and resistance training ,probiotics, B12 complex biotin , iron and other nutrients, To help avoid telogen effluvium There is no history of medullary thyroid cancer or multiple endocrine neoplasia There is also no history of cardiovascular disease, hypertension, palpitations, or arrhythmias In the setting of potential stimulant/amphetami ne use such as phentermine We have also discussed risks and benefits, and the use of compounded medications to help offset the national shortages as well as financial implications vs trade name drugs GLP must be discontinued upon initiation We have discussed the lifelong requirement of nutritional supplementation And adherence to an exercise regimen as well as importance of follow-up The patient understands and agrees Patient has been found to be obese with a BMI of (37). Patient has class (2) obesity. Patient was reassured and welcomed to the practice. We discussed that we stress a hollistic medical approach with emphasis on lifestyle modification. Patient was informed that a healthy lifestyle with exercise and good eating habits can help reduce his risk of medical complications. He is explained that obesity increases his risk of diabetes, cardiovascular disease, or organ damage. We spent a lot of time discussing the relationship between food, exercise, sleep, mental health and obesity. Patient was counseled on the importance EATING local, organic food when possible. Patient was educated on clean 15 and dirty dozen. I provided information about reading books called The Food Rules by Crispin Richards and Eat Fat Get Lean by Dr Shukri Jimenez. Self education is important in the journey for weight management. Patient was offered diagnostic testing. We want to measure visceral adiposity, advanced body composition, adverse lipids, fatty acid balance, risk for heart disease and atherosclerosis, markers of inflammation and genetic susceptibility. Patient was counseled on weight management and was advised to lose weight using A. Meal Replacement Products We discussed the lifelong requirement of nutritional supplementation and adherence to an exercise regimen as well as importance of dietary f/u Patient was educated on the replacement products called optifast. This is a good way of taking fixed amount of calories. It has been shown in studies to be ineffective weight management tool. We also recommend maintaining adequate protein intake and muscle composition, 1.5mg/kg This however has to be coupled with lifestyle intervention as well as laboratory data and EKG monitoring. It is impossible to know how a person will tolerate complete meal replacement. The side effects of meal replacement and weight loss could include syncopal attacks, dizziness, gallstones, potential cholecystectomy, possible heart attack and even . The benefits of meal replacement would be potential weight loss but no guarantees can be made. Meal replacement products are not covered by insurance. Once the patient has bought these products we cannot return them B. Lifestyle management which includes several strategies as below 1. Eat a low carbohydrate good fat good protein diet. Eliminate refined carbohydrates from the diet. Continue blood sugar and sugared beverages. Eat local organic when possible. Cook your own meals. Read food labels. None about healthy snacks. Portion control and food with low glycemic index 2. Exercise regularly. Try to get at least 6000 steps a day. Use a predominant to track activity level. Consider using apps like [employer], myfitnesspal, lose it, stick as needed for self-monitoring and weight management. Consider group exercises. Consider hiring a personal lines appraiser. Regular exercise is acevedo to sustainable health and prevents as a buffer against weight regain 3. Sleep is most important for healing. Tried to sleep at least 8 hours a night. A good quality sleep needs a sleep ritual with ideal room temperature of around 68. It might help to take a shower and have no electronics in the room and sleep in a very dark room without artificial light. Start her sleep routine and get up early in the morning and go to bed on time 4. Make a social connection. Surround yourself with positive people with positive energy. Connect with friends and family. 5. Get into the habit of meditating and mindfulness while doing everything. 6. Go outside and connect with nature. C. Prescription medications Patient was educated on the use of prescription medications for medical weight loss. This is a growing list and includes phentermine, Topamax,Qsymia, contrave, belviq and saxenda, wegovy All prescription medications could have side effects including but not limited to kidney stones, seizure disorder cardiac arrhythmias heart attack pancreatitis etc. etc.. Patient was encouraged to read the prescription insert and have coaching with their pharmacist and make an informed decision about taking medication and know that these medications are being prescribed with good intentions and we do not know how a patient would react to her medication. Sudden medications are FDA approved for weight loss and there is also off label use depending on patient's inability to afford medications in an attempt to lose weight D. Behavioral counseling was done to establish a relationship between food and an mood. Patient was provided information about local counseling and psychiatry and Dr Billingsley at [facility]. We would like to cover regular topics and build on low glycemic eating exercise mindful eating, using yoga and meditation along with deep breathing and connecting with friends and family. E. MASS PAT reviewed, Patient's current medications were reviewed and opinion was given on medication that can cause weight gain and can be substituted F. Patient was assessed for risk with obesity including and not limiting to atherosclerosis heart disease stroke kidney disease, restrictive lung disease, irritable bowel syndrome and overall mortality. Risk of developing prediabetes diabetes and metabolic syndrome was discussed G. Therapeutic plan: We have decided to make therapeutic plan which would include choosing wisely on calories restricting portion getting active, tracking weight, getting good quality sleep and working on time management H. Patient will follow up in (4) weeks for weight management Of note, some information is being carried forward from prior records for informational purposes only and is being cited so that efficiency, safety and quality of the patient's care is not compromised This note was prepared using voice recognition software and direct typing Please excuse inadvertent dependency program director or typing errors, or uncorrected word substitutions Although every attempt has been made by the provider to proofread this document, occasional misspellings and typographical errors may still be present Due to the previous pandemic, and the use of personal protective equipment (PPE) This may decrease voice recognition accuracy Inadvertent dependency program director errors may occur PLAN OF TREATMENT Medication Medication Name Sig Start Date Stop Date Notes Ozempic (1 MG/DOSE) 4 MG/3ML 1mg Subcuta neous weekly for 30 days 09/03/2023 Progress Notes * Xuan RANGELDOB:1985 (37 yo F)Acc No.[id number]:09/03/2023 Patient:??Xuan RANGEL Provider:??ANGLE GARCIA NP :1985?Age:37 Y?Sex:Fe male Date:09/03/2023 Address:[address] [place], [place] [id number] Subjective: * Chief Complaints: * ?1. Pt seen in office f or wt mgt consult with WILLIAM.. * HPI: ?Constitutional:? Patient is here today for a weight management consultation visit ?Patient seen and examined. ? Full past medical history, social history, family history, ?allergies and current medications were reviewed and updated. 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 ?Diet: grab and go, not portion controlling, while on Mounjaro had amazing apetite suppresion ?Exercise: Currently not steps daily. 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 recr THC ?ETOH use: social. * ROS:?All Other Systems:?Review of Systems (ROS)??All others negative except those mentioned in HPI.? * Medical History:??Medical Hi story Verified. * Surgical History:??Denies Davide preston Surgical History. * Hospitalization/Major Diagno stic Procedure:??Denies Past Hospitalization. * Family History:??No Family H istory documented..?? * Medications:??Taking Vyvanse 30 MG Capsule 1 capsule in the morning Orally Once a day , Medication List reviewed and reconciled with the patient * Allergies:??N.K.D.A. Objective: * Vitals:??HR:98/min, BP:142/8 6mm Hg, Wt:238lbs, BMI:37.27Index, Ht: 67 in, Oxygen sat %:99%. * Examination: ?General Examination: ?GENERAL APPEARANCE:??in no acute distress, well developed, well nourished.??HEAD:??normocephalic, atraumatic.??EYES:??pupils equal, round, reactive to light and accommodation.??EARS:??normal.??ORAL CAVITY:??mucosa moist.??THROAT:??clear.??NECK/THYROID:??neck supple, full range of motion, no cervical lymphadenopathy.??SKIN:??no suspicious lesions, warm and dry.??HEART:??no murmurs, regular rate and rhythm, S1, S2 normal.??LUNGS:??clear to auscultation bilaterally.??ABDOMEN:??normal, bowel sounds present, soft, nontender, nondistended.??EXTREMITIES:??no clubbing, cyanosis, or edema.??NEUROLOGIC:??nonfocal, motor strength normal upper and lower extremities, sensory exam intact.? Assessment: * Assessment: 1.??Other obesity due to exc ess calories - E66.09 (Primary)??2.??Body mass index [BMI] 37.0-37.9, adult - Z68.37?? Total time spent today was 6 0 minutes of which greater than 50% was spent on coordinating and counseling We are a board certified obesity and weight management practice Patient has trialed behavioral modification, dietary restrictions and exercise for a minimum of 3 months The most recent [place] Association of clinical endocrinologists and [place] [employer] of endocrinology guidelines recommend the patients who have overweight BMI or obesity BMI, who also have metabolic syndrome, prediabetes, or at risk of developing type 2 diabetes should aim for a weight loss goal of at least 10% of the baseline body weight Patient counseled regarding effects of GLP/GIP-1 agonists, and other FDA approved wgt loss meds with regards to a multifactorial approach of weight loss as mentioned above and not solely appetite suppression. We have discussed the mechanism of GLP-1's/GIP, dual incretins I think this would be fantastic option for her given her metabolic workup and body composition We have discussed the risks and benefits and side effects including/and not limited to Sarcopenia, intestinal obstruction, constipation, nausea, lethargy, headache Discussed importance of protein consumption for muscle maintenance as well as strength and resistance training ,probiotics, B12 complex biotin , iron and other nutrients, To help avoid telogen effluvium There is no history of medullary thyroid cancer or multiple endocrine neoplasia There is also no history of cardiovascular disease, hypertension, palpitations, or arrhythmias In the setting of potential stimulant/amphetamine use such as phentermine We have also discussed risks and benefits, and the use of compounded medications to help offset the national shortages as well as financial implications vs trade name drugs GLP must be discontinued upon initiation We have discussed the lifelong requirement of nutritional supplementation And adherence to an exercise regimen as well as importance of follow-up The patient understands and agrees Patient has been found to be obese with a BMI of (37). Patient has class (2) obesity. Patient was reassured and welcomed to the practice. We discussed that we stress a hollistic medical approach with emphasis on lifestyle modification. Patient was informed that a healthy lifestyle with exercise and good eating habits can help reduce his risk of medical complications. He is explained that obesity increases his risk of diabetes, cardiovascular disease, or organ damage. We spent a lot of time discussing the relationship between food, exercise, sleep, mental health and obesity. Patient was counseled on the importance EATING local, organic food when possible. Patient was educated on clean 15 and dirty dozen. I provided information about reading books called The Food Rules by Crispin Richards and Eat Fat Get Lean by Dr Shukri Jimenez. Self education is important in the journey for weight management. Patient was offered diagnostic testing. We want to measure visceral adiposity, advanced body composition, adverse lipids, fatty acid balance, risk for heart disease and atherosclerosis, markers of inflammation and genetic susceptibility. Patient was counseled on weight management and was advised to lose weight using A. Meal Replacement Products We discussed the lifelong requirement of nutritional supplementation and adherence to an exercise regimen as well as importance of dietary f/u Patient was educated on the replacement products called optifast. This is a good way of taking fixed amount of calories. It has been shown in studies to be ineffective weight management tool. We also recommend maintaining adequate protein intake and muscle composition, 1.5mg/kg This however has to be coupled with lifestyle intervention as well as laboratory data and EKG monitoring. It is impossible to know how a person will tolerate complete meal replacement. The side effects of meal replacement and weight loss could include syncopal attacks, dizziness, gallstones, potential cholecystectomy, possible heart attack and even . The benefits of meal replacement would be potential weight loss but no guarantees can be made. Meal replacement products are not covered by insurance. Once the patient has bought these products we cannot return them B. Lifestyle management which includes several strategies as below 1. Eat a low carbohydrate good fat good protein diet. Eliminate refined carbohydrates from the diet. Continue blood sugar and sugared beverages. Eat local organic when possible. Cook your own meals. Read food labels. None about healthy snacks. Portion control and food with low glycemic index 2. Exercise regularly. Try to get at least 6000 steps a day. Use a predominant to track activity level. Consider using apps like [employer], [employer], lose it, stick as needed for self-monitoring and weight management. Consider group exercises. Consider hiring a personal lines appraiser. Regular exercise is acevedo to sustainable health and prevents as a buffer against weight regain 3. Sleep is most important for healing. Tried to sleep at least 8 hours a night. A good quality sleep needs a sleep ritual with ideal room temperature of around 68. It might help to take a shower and have no electronics in the room and sleep in a very dark room without artificial light. Start her sleep routine and get up early in the morning and go to bed on time 4. Make a social connection. Surround yourself with positive people with positive energy. Connect with friends and family. 5. Get into the habit of meditating and mindfulness while doing everything. 6. Go outside and connect with nature. C. Prescription medications Patient was educated on the use of prescription medications for medical weight loss. This is a growing list and includes phentermine, Topamax,Qsymia, contrave, belviq and saxenda, wegovy All prescription medications could have side effects including but not limited to kidney stones, seizure disorder cardiac arrhythmias heart attack pancreatitis etc. etc.. Patient was encouraged to read the prescription insert and have coaching with their pharmacist and make an informed decision about taking medication and know that these medications are being prescribed with good intentions and we do not know how a patient would react to her medication. Sudden medications are FDA approved for weight loss and there is also off label use depending on patient's inability to afford medications in an attempt to lose weight D. Behavioral counseling was done to establish a relationship between food and an mood. Patient was provided information about local counseling and psychiatry and Dr Billingsley at [facility]. We would like to cover regular topics and build on low glycemic eating exercise mindful eating, using yoga and meditation along with deep breathing and connecting with friends and family. E. MASS PAT reviewed, Patient's current medications were reviewed and opinion was given on medication that can cause weight gain and can be substituted F. Patient was assessed for risk with obesity including and not limiting to atherosclerosis heart disease stroke kidney disease, restrictive lung disease, irritable bowel syndrome and overall mortality. Risk of developing prediabetes diabetes and metabolic syndrome was discussed G. Therapeutic plan: We have decided to make therapeutic plan which would include choosing wisely on calories restricting portion getting active, tracking weight, getting good quality sleep and working on time management H. Patient will follow up in (4) weeks for weight management Of note, some information is being carried forward from prior records for informational purposes only and is being cited so that efficiency, safety and quality of the patient's care is not compromised This note was prepared using voice recognition software and direct typing Please excuse inadvertent dependency program director or typing errors, or uncorrected word substitutions Although every attempt has been made by the provider to proofread this document, occasional misspellings and typographical errors may still be present Due to the previous pandemic, and the use of personal protective equipment (PPE) This may decrease voice recognition accuracy Inadvertent dependency program director errors may occur. Plan: * Treatment: * Procedure Codes:??48226 GLYC ATED HEMOGLOBIN TEST, Modifiers: QW * Images: Billing Information: * Visit Code:?? 82774 Office Visit, New Pt., Level 5. Modifiers: 25 * Procedure Codes:?? 87507 GLYCATED HEMOGLOBIN TEST. Modifiers: QW * Sign off status: Completed true * Provider:?CAROL GARCIA NP Date:??08/09 History and Physical Notes * HPI (History of Present Illness) Category Sub-Category Detail Notes Category Not es Constitutional Patient is here today for a weight management consultation visit Patient seen and examined. Full past medical history, social history, family history, allergies and current medications were reviewed and updated. 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 TSH? Has not had an echocardiogram recently. Diet: grab and go, not portion controlling, while on Mounjaro had amazing apetite suppresion Exercise: Currently not steps daily. 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 recr THC ETOH use: social Examination Category Sub-Category Detail Notes Category Not es General Examination GENERAL APPEARANCE: in no ac [place] distress, well developed, well nourished HEAD: normocephalic, atrau matic EYES: pupils equal, round, reactive to light and accommodation EARS: normal THROAT: clear NECK/THYROID: neck supple, full ra nge of motion, no cervical lymphadenopathy HEART: no murmurs, regular rate and rhythm, S1, S2 normal LUNGS: clear to auscultatio n bilaterally ABDOMEN: normal, bowel sounds present, soft, nontender, nondistended NEUROLOGIC: nonfocal, motor stre ngth normal upper and lower extremities, sensory exam intact SKIN: no suspicious lesion s, warm and dry EXTREMITIES: no clubbing, cyanosi s, or edema ORAL CAVITY: mucosa moist
--- OUTSIDE RECORDS SUMMARY | 2024-11-04 15:24 | XMS_ITS | Patient Health Record ---
Author Organization [facility] Address [address] [place] [address] Care Team Providers Care Gallery Or Museum Curator Name Role Phone ANGLE GARCIA Unavailable [phone] ALLERGIES No Known Allergies REASON FOR REFERRAL No Information MEDICATIONS Medication SIG (Take, Route, Frequency, Duration) [...] due to excess calories (E66.09) Active confirmed [id number] Problem Body mass index [BMI] 37.0-37.9, adult (Z68.37) Active confirmed [id number] Encounters Encounter Location Date Provider Diagnosis [facility] [address] [address] 02/17/2024 ANGLE GARCIA PLAN OF TREATMENT No Information Insurance Providers Payer Name Payer Address Payer Phone Subscriber Number Group Number Insured Name Patient Relationship to Insured Coverage Start Date Coverage End Date [facility] [address] [place] [address] [id number] Xuan Newberry Self - patient is the insured
--- OUTSIDE RECORDS SUMMARY | 2024-11-04 15:24 | XMS_ITS ---
Author Organization [facility] Address [address] [place] [address] Care Team Providers Care Line Mover Name Role Phone ANGLE GARCIA Unavailable [phone] Encounters Encounter Location Date Provider Diagnosis [address] [address] 09/03/2023 ANGLE GARCIA PLAN OF TREATMENT No Information Progress Notes * Xuan NEWBERRYDOB:1985 (37 yo F)Acc No.[id number]:09/03/2023 Patient:??Xuan NEWBERRY :1985?Age:37 Y?Sex:Fe male Address:[address] [place] [address] * true * Date:??
== END 2024-11-04 14:14 | disposition home or self-care (01) ==
PROVIDERS: PCP Internal Medicine; Visit Provider Internal Medicine
DX: R03.0 Elevated blood-pressure reading, without diagnosis of hypertension (principal); F90.9 Attention-deficit hyperactivity disorder, unspecified type; E66.9 Obesity, unspecified; Z68.35 Body mass index [BMI] 35.0-35.9, adult; F41.1 Generalized anxiety disorder; E53.8 Deficiency of other specified B group vitamins; R73.01 Impaired fasting glucose

== ENCOUNTER → 2024-11-04 12:58 | Outpatient (BNVA) | payer OTHER, SELFPAY | PROVIDERS: PCP Internal Medicine; Visit Provider Internal Medicine | DX: F90.9 Attention-deficit hyperactivity disorder, unspecified type (principal); E66.9 Obesity, unspecified; Z68.35 Body mass index [BMI] 35.0-35.9, adult; F41.1 Generalized anxiety disorder; E53.8 Deficiency of other specified B group vitamins; R03.0 Elevated blood-pressure reading, without diagnosis of hypertension; R73.01 Impaired fasting glucose; Z79.899 Other long term (current) drug therapy | CPT/HCPCS: 96127 ==

== ENCOUNTER 2025-08-30 14:18 | Outpatient (AMB) | payer OTHER, SELFPAY ==
--- OUTSIDE RECORDS SUMMARY | 2025-08-18 08:30 | XMS_ITS ---
Author Organization [facility] [address] Address [address] [place] [address] Care Team Providers Care Mobile Security Specialist Name Role Phone Rasheed Root Primary Care Provider ANGLE Garcia Unavailable [phone] SURESH FREED [phone] Encounters Encounter Location Date Provider Diagnosis [facility] [address] [address] 08/18/2025 SURESH FREED Plan Of Treatment No Information Progress Notes * Xuan NEWBERRYDOB:1985 (39 yo F)Acc No.[id number]:08/18/2025 Patient: Maria Del Rosario nicole Xuan Provider: Anibal FREED :1985 A ge:39 Y S ex:Female Date:08/18/2025 Address:[address] [place], [place] [id number] Pcp:Rasheed Root * Electronic signature of JENN FREED PA-C, [id number] on 08/30/2025 at 03:35 PM EST Sign off status: Pending * Provider: Anibal FREED Date: 1 10/19/2024 Generated for Laishai ng/Faniig/eTransmitting on: 10/31/2024 03:35 PM EST
--- OUTSIDE RECORDS SUMMARY | 2025-08-24 08:45 | XMS_ITS ---
Author Organization [facility] Address [address] [place] [address] Care Team Providers Care Director Imaging Name Role Phone Dk Stephanimara Primary Care Provider ANGLE Garcia Unavailable [phone] SURESH FREED Unavailable [phone] Medications Medication SIG (Take, Route, Frequency, Duration) Notes Start Date End Date Status Zepbound 5 MG/0.5ML Solution Auto-injector Inject 5 mg Subcutaneous weekly; Duration: 28 days 06/30/2025 Active Amphetamine-Dextroamphet ER 25 MG Capsule Extended Release 24 Hour TAKE 1 CAPSULE BY MOUTH EVERY DAY Oral; Duration: 30 Days Active Mounjaro 5 MG/0.5ML Solution Auto-injector Inject 5 mg Subcutaneous weekly; Duration: 28 days 07/01/2025 Active Encounters Encounter Location Date Provider Diagnosis [facility] [address] [place] [id number] 08/24/2025 SURESH FREED Plan Of Treatment No Information History and Physical Notes * HPI (History of Present Illness) Category Sub-Category Detail Notes Category Not es Constitutional Xuan is a 39 -year-old female with history of obesity and prediabetes who presents today for weight management follow-up. Last seen on 06/30/2025 at which time weight was 218 pounds, BMI 34.14. She currently is on Zepbound 5 mg weekly. Physical Examination Category Sub-Category Detail Notes Section Note s General: Age appropriate, well-appearing 39-year-old female in no acute distress, speaking in full sentences without respiratory compromise. Well groomed, well developed. Alert, interactive. Skin: Warm, dry and intact. No lesions/rashes/erythema. HEENT: Normocephalic/atraumatic. Neck/Thyroid: Thyroid symmetrical, nonenlarged, and free of nodules to palpation. Lungs: Clear to auscultation bilaterally. CV: Regular rate and rhythm without murmurs, rubs, or gallops. 2+ radial pulses bilaterally. Neuro: CN II-XII grossly intact. Steady gait with non-assisted ambulation observed. Psych: Stable mood and affect. Progress Notes * Xuan NEWBERRYDOB:1985 (39 yo F)Acc No.[id number]:08/24/2025 Patient: Xuan Mancera Provider: Anibal FREED :1985 A ge:39 Y S ex:Female Date:08/24/2025 Address:[address] [place], [place] [id number] Pcp:Rasheed Root Subjective: * Chief Complaints: * HPI: C onstitutional: Xuan is a 39-year-old female with history of obesity and prediabetes who presents today for weight management follow-up. Last seen on 06/30/2025 at which time weight was 218 pounds, BMI 34.14. She currently is on Zepbound 5 mg weekly. * ROS: C onstitutional: Denies sudden weight loss, fever, night sweats, excessive fatigue, or changes in sleep. CV: Denies chest pain or heart palpitations. Respiratory: Denies SOB, wheezing, or pleuritic pain. GI: Denies n/v/d, constipation, blood in stools, pain associated with eating, indigestion, or difficulty/pain with swallowing. MSK: Denies back pain, joint deformity/pain, or muscle weakness. Integumentary: Denies skin changes. Endocrine: Denies polyuria, polyphagia, or polydipsia. No heat/cold intolerance or excessive thirst. * Medications: T akingZepbound 5 MG/0.5ML Solution Auto-injector Inject 5 mg Subcutaneous weekly Amphetamine-Dextroamphet ER 25 MG Capsule Extended Release 24 Hour TAKE 1 CAPSULE BY MOUTH EVERY DAY Oral Mounjaro 5 MG/0.5ML Solution Auto-injector Inject 5 mg Subcutaneous weekly Taking Zepbound 5 MG/0.5ML Solution Auto-injector Inject 5 mg Subcutaneous weekly Taking Amphetamine-Dextroamphet ER 25 MG Capsule Extended Release 24 Hour TAKE 1 CAPSULE BY MOUTH EVERY DAY Oral Taking Mounjaro 5 MG/0.5ML Solution Auto-injector Inject 5 mg Subcutaneous weekly Objective: * Physical Examination: G eneral: Age appropriate, well-appearing 39-year-old female in no acute distress, speaking in full sentences without respiratory compromise. Well groomed, well developed. Alert, interactive. Skin: Warm, dry and intact. No lesions/rashes/erythema. HEENT: Normocephalic/atraumatic. Neck/Thyroid: Thyroid symmetrical, nonenlarged, and free of nodules to palpation. Lungs: Clear to auscultation bilaterally. CV: Regular rate and rhythm without murmurs, rubs, or gallops. 2+ radial pulses bilaterally. Neuro: CN II-XII grossly intact. Steady gait with non-assisted ambulation observed. Psych: Stable mood and affect. * Electronic signature of JENN FREED PA-C, [id number] on 08/30/2025 at 03:35 PM EST Sign off status: Pending * Provider: Anibal FREED Date: 10/25/2024 Generated for Glory floyd/Gracie/Dc on: 10/31/2024 03:35 PM EST
[2025-08-30 14:36] VITALS: BP 122/76; PULSE 76; TEMP 36.7; O2SAT 97; BMI 32.3
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
--- OUTSIDE RECORDS SUMMARY | 2025-08-30 15:36 | XMS_ITS | Patient Health Record ---
Author Organization [facility] [address] Address [address] [place] [address] Care Team Providers Care Stock Feeder Name Role Phone DkStephanimara Primary Care Provider ANGLE Garcia Unavailable [phone] SURESH FREED Unavailable [phone] Allergies No Known Allergies Reason For Referral No Information Medications Medication SIG (Take, Route, Frequency, Duration) [...] Subcutaneous weekly; Duration: 28 days 07/01/2025 Active Problems Problem Type SNOMED Code ICD Code Onset Dates Problem Status W/U Status Risk Notes Problem Obesity due to excess calories (868105573) Other obesity due to excess calories (E66.09) Active confirmed Problem Body mass index 35.00 to 39.99 (882993158545060) Body mass index [BMI] 37.0-37.9, adult (Z68.37) Active confirmed Problem Adult-onset obesity (515745113) Adult-onset obesity (E66.9) Active confirmed Problem Body mass index 30.00 to 34.99 (145465293342227) BMI 34.0-34.9,adult (Z68.34) Active confirmed Problem Attention deficit hyperactivity disorder (741638919) ADHD (attention deficit hyperactivity disorder), combined type (F90.2) Active confirmed Vital Signs Heart Rate 98 /min 06/30/2025 Oximetry 99 % 06/30/2025 Blood pressure diastolic 82 mm Hg 06/30/2025 Height 67 in 06/30/2025 Blood pressure systolic 124 mm Hg 06/30/2025 Weight 218 lbs 06/30/2025 BMI 34.14 kg/m2 06/30/2025 Encounters Encounter Location Date Provider Diagnosis [facility] [address] [address] 06/30/2025 SURESH FREED Adult-onset obesity E66.9 ; BMI 34.0-34.9,adult Z68.34 ; ADHD (attention deficit hyperactivity disorder), combined type F90.2 ; Nutritional counseling Z71.3 and Encounter for examination of blood pressure without abnormal findings Z01.30 [facility] [address] [address] 06/30/2025 SURESH FREED Other obesity due to excess calories E66.09 [facility] [address] [address] 06/30/2025 SURESH FREED Other obesity due to excess calories E66.09 Assessments Encounter Date Diagnosis (ICD Code) Assessment Notes Treatment Notes Treatment Clinical Notes Section Notes 06/30/2025 Adult-onset obesity (ICD-10 - E66.9) Xuan is a 39-year-old female with history of obesity who presents to the office today for weight management consult. Medical history, labs, allergies, medications, and social history reviewed with the patient. Provided education on healthy diet and lifestyle which includes high-protein, low carbohydrate, high-fiber, and a variety of fruits and vegetables. Patient encouraged to exercise with emphasis on resistance training minimum 3 times per week to maintain muscle mass and cardio to burn fat. All patient questions answered. Patient will follow-up in 2 to 4 weeks for weight management. 06/30/2025: 218 pounds, BMI 34.14. Seca scan completed and discussed results with the patient. On body composition analysis 48% of body weight is fat mass amounting 105 pounds. Muscle mass amounts to 54 pounds which is increased. Visceral adiposity of 2.0 L. Patient previously was on GLP-1 for treatment of obesity, had a trial of Mounjaro, Zepbound and Ozempic. Reports that with Ozempic she experienced significant GI side effects. States that insurance is no longer covering Zepbound. Will trial Mounjaro for off-label treatment of obesity. Will initiate dose of 5 mg, stepdown from 7.5 mg 2 months ago. Discussed also diet and exercise. She will follow-up in 4 to 6 weeks. # ADHD: Continue Adderall 25 mg once daily. Patient was reassured and welcomed to the practice. We discussed that we stress a hollistic medical approach with emphasis on lifestyle modification. Patient was informed that a healthy lifestyle with exercise and good eating habits can help reduce their risk of medical complications. Patient is explained that obesity increases their risk of diabetes, cardiovascular disease, or organ [...] for weight management. Patient was offered diagnostic testing/ SECA scale. We want to measure visceral adiposity, advanced body composition, adverse lipids, fatty acid balance, risk for heart disease and atherosclerosis, markers of inflammation and genetic susceptibility. Patient was counseled on weight management and was advised to lose weight using A. Meal Replacement Products Patient was educated on the replacement products called optifast. This is a good way of taking fixed amount of calories. It has been shown in studies to be ineffective weight management tool. This however has to be coupled with [...] diet. Eliminate refined carbohydrates from the diet. Limit sugared beverages. Eat local organic when possible. Cook your own meals. Read food labels. Focus on healthy snacks. Portion control and food with low glycemic index 2. Exercise regularly. Try to get at least 6000 steps a day. Use a predominant to track activity level. Consider using apps like 7 minute excercise, myfitnesspal, lose it, stick as needed for self-monitoring and weight management. Consider group exercises. Consider hiring a green jobs trainer. Regular exercise is acevedo to sustainable health and prevents as a buffer against weight regain 3. Sleep is most important for healing. Try to sleep at least 6-8 hours a night. A good quality sleep needs a sleep ritual with ideal room temperature of around 68. It might help to take a shower and have no electronics in the room and sleep in a very dark room without artificial light. Start sleep routine and get up early in the morning and go to bed on time. 4. Make a social connection. Surround yourself [...] phentermine, Topamax,Qsymia, contrave, belviq and saxenda, wegovy etc. All prescription medications could have side effects including but not limited to kidney stones, seizure disorder cardiac arrhythmias heart attack pancreatitis, GI effects, Etc. Patient was encouraged to read the prescription insert and have coaching with their pharmacist and make an informed decision about taking medication and know that these medications are being prescribed with good intentions and we do not know how a patient would react to the medication. Some medications are FDA approved for weight loss and there is also off label use depending on patient's inability to afford medications in an attempt to lose weight D. Behavioral counseling was done to establish a relationship between food and an mood. Patient was provided information about local counseling and psychiatry and Dr Billingsley at [facility]. We would like to cover regular topics [...] management H. Patient will follow up in 4 weeks for weight management Total time spent today was 60 minutes of which greater than 50% was spent on coordinating and counseling Case discussed with collaborating physician Nighat Andrade who reviewed the assessment and plan. Chart, medications, labs, vital signs reviewed. Dictation was accomplished with the use of [employer] voice recognition software, prone to medical misidentifications and grammatical errors. This is unintentional and the practitioner does try to identify and correct these, but some could still be present. Please do not hesitate to contact practitioner for clarification. All questions answered to patients satisfaction. Patient verbalized understanding of diagnosis and treatments explained. To call sooner prior to next visit it any questions/concerns arise. 06/30/2025 BMI 34.0-34.9,adult (ICD-10 - Z68.34) Xuan is a 39-year-old female with history of obesity who presents to the office today for weight management consult. Medical history, labs, allergies, medications, and social history reviewed with the patient. Provided education on healthy diet and lifestyle which includes high-protein, low carbohydrate, high-fiber, and a variety of fruits and vegetables. Patient encouraged to exercise with emphasis on resistance training minimum 3 times per week to maintain muscle mass and cardio to burn fat. All patient questions answered. Patient will follow-up in 2 to 4 weeks for weight management. 06/30/2025: 218 pounds, BMI 34.14. Seca scan completed and discussed results with the patient. On body composition analysis 48% of body weight is fat mass amounting 105 pounds. Muscle mass amounts to 54 pounds which is increased. Visceral adiposity of 2.0 L. Patient previously was on GLP-1 for treatment of obesity, had a trial of Mounjaro, Zepbound and Ozempic. Reports that with Ozempic she experienced significant GI side effects. States that insurance is no longer covering Zepbound. Will trial Mounjaro for off-label treatment of obesity. Will initiate dose of 5 mg, stepdown from 7.5 mg 2 months ago. Discussed also diet and exercise. She will follow-up in 4 to 6 weeks. # ADHD: Continue Adderall 25 mg once daily. Patient was reassured and welcomed to the practice. We discussed that we stress a hollistic medical approach with emphasis on lifestyle modification. Patient was informed that a healthy lifestyle with exercise and good eating habits can help reduce their risk of medical complications. Patient is explained that obesity increases their risk of diabetes, cardiovascular disease, or organ [...] for weight management. Patient was offered diagnostic testing/ SECA scale. We want to measure visceral adiposity, advanced body composition, adverse lipids, fatty acid balance, risk for heart disease and atherosclerosis, markers of inflammation and genetic susceptibility. Patient was counseled on weight management and was advised to lose weight using A. Meal Replacement Products Patient was educated on the replacement products called optifast. This is a good way of taking fixed amount of calories. It has been shown in studies to be ineffective weight management tool. This however has to be coupled with [...] diet. Eliminate refined carbohydrates from the diet. Limit sugared beverages. Eat local organic when possible. Cook your own meals. Read food labels. Focus on healthy snacks. Portion control and food with low glycemic index 2. Exercise regularly. Try to get at least 6000 steps a day. Use a predominant to track activity level. Consider using apps like 7 minute excercise, Blipparpal, lose it, stick as needed for self-monitoring and weight management. Consider group exercises. Consider hiring a green jobs trainer. Regular exercise is acevedo to sustainable health and prevents as a buffer against weight regain 3. Sleep is most important for healing. Try to sleep at least 6-8 hours a night. A good quality sleep needs a sleep ritual with ideal room temperature of around 68. It might help to take a shower and have no electronics in the room and sleep in a very dark room without artificial light. Start sleep routine and get up early in the morning and go to bed on time. 4. Make a social connection. Surround yourself [...] phentermine, Topamax,Qsymia, contrave, belviq and saxenda, wegovy etc. All prescription medications could have side effects including but not limited to kidney stones, seizure disorder cardiac arrhythmias heart attack pancreatitis, GI effects, Etc. Patient was encouraged to read the prescription insert and have coaching with their pharmacist and make an informed decision about taking medication and know that these medications are being prescribed with good intentions and we do not know how a patient would react to the medication. Some medications are FDA approved for weight loss and there is also off label use depending on patient's inability to afford medications in an attempt to lose weight D. Behavioral counseling was done to establish a relationship between food and an mood. Patient was provided information about local counseling and psychiatry and Dr Billingsley at [facility]. We would like to cover regular topics [...] management H. Patient will follow up in 4 weeks for weight management Total time spent today was 60 minutes of which greater than 50% was spent on coordinating and counseling Case discussed with collaborating physician Nighat Andrade who reviewed the assessment and plan. Chart, medications, labs, vital signs reviewed. Dictation was accomplished with the use of [employer] voice recognition software, prone to medical misidentifications and grammatical errors. This is unintentional and the practitioner does try to identify and correct these, but some could still be present. Please do not hesitate to contact practitioner for clarification. All questions answered to patients satisfaction. Patient verbalized understanding of diagnosis and treatments explained. To call sooner prior to next visit it any questions/concerns arise. 06/30/2025 Other obesity due to excess calories (ICD-10 - E66.09) Electronic Prior Authorization was requested for Zepbound 5 MG/0.5ML Solution. Provider can order medication once approval received. 06/30/2025 Other obesity due to excess calories (ICD-10 - E66.09) Electronic Prior Authorization was requested for Zepbound 5 MG/0.5ML Solution. Provider can order medication once approval received. 06/30/2025 ADHD (attention deficit hyperactivity disorder), combined type (ICD-10 - F90.2) Xuan is a 39-year-old female with history of obesity who presents to the office today for weight management consult. Medical history, labs, allergies, medications, and social history reviewed with the patient. Provided education on healthy diet and lifestyle which includes high-protein, low carbohydrate, high-fiber, and a variety of fruits and vegetables. Patient encouraged to exercise with emphasis on resistance training minimum 3 times per week to maintain muscle mass and cardio to burn fat. All patient questions answered. Patient will follow-up in 2 to 4 weeks for weight management. 06/30/2025: 218 pounds, BMI 34.14. Seca scan completed and discussed results with the patient. On body composition analysis 48% of body weight is fat mass amounting 105 pounds. Muscle mass amounts to 54 pounds which is increased. Visceral adiposity of 2.0 L. Patient previously was on GLP-1 for treatment of obesity, had a trial of Mounjaro, Zepbound and Ozempic. Reports that with Ozempic she experienced significant GI side effects. States that insurance is no longer covering Zepbound. Will trial Mounjaro for off-label treatment of obesity. Will initiate dose of 5 mg, stepdown from 7.5 mg 2 months ago. Discussed also diet and exercise. She will follow-up in 4 to 6 weeks. # ADHD: Continue Adderall 25 mg once daily. Patient was reassured and welcomed to the practice. We discussed that we stress a hollistic medical approach with emphasis on lifestyle modification. Patient was informed that a healthy lifestyle with exercise and good eating habits can help reduce their risk of medical complications. Patient is explained that obesity increases their risk of diabetes, cardiovascular disease, or organ [...] for weight management. Patient was offered diagnostic testing/ SECA scale. We want to measure visceral adiposity, advanced body composition, adverse lipids, fatty acid balance, risk for heart disease and atherosclerosis, markers of inflammation and genetic susceptibility. Patient was counseled on weight management and was advised to lose weight using A. Meal Replacement Products Patient was educated on the replacement products called optifast. This is a good way of taking fixed amount of calories. It has been shown in studies to be ineffective weight management tool. This however has to be coupled with [...] diet. Eliminate refined carbohydrates from the diet. Limit sugared beverages. Eat local organic when possible. Cook your own meals. Read food labels. Focus on healthy snacks. Portion control and food with low glycemic index 2. Exercise regularly. Try to get at least 6000 steps a day. Use a predominant to track activity level. Consider using apps like 7 minute excercise, [employer]bpal, lose it, stick as needed for self-monitoring and weight management. Consider group exercises. Consider hiring a green jobs trainer. Regular exercise is acevedo to sustainable health and prevents as a buffer against weight regain 3. Sleep is most important for healing. Try to sleep at least 6-8 hours a night. A good quality sleep needs a sleep ritual with ideal room temperature of around 68. It might help to take a shower and have no electronics in the room and sleep in a very dark room without artificial light. Start sleep routine and get up early in the morning and go to bed on time. 4. Make a social connection. Surround yourself [...] phentermine, Topamax,Qsymia, contrave, belviq and saxenda, wegovy etc. All prescription medications could have side effects including but not limited to kidney stones, seizure disorder cardiac arrhythmias heart attack pancreatitis, GI effects, Etc. Patient was encouraged to read the prescription insert and have coaching with their pharmacist and make an informed decision about taking medication and know that these medications are being prescribed with good intentions and we do not know how a patient would react to the medication. Some medications are FDA approved for weight loss and there is also off label use depending on patient's inability to afford medications in an attempt to lose weight D. Behavioral counseling was done to establish a relationship between food and an mood. Patient was provided information about local counseling and psychiatry and Dr Billingsley at [facility]. We would like to cover regular topics [...] management H. Patient will follow up in 4 weeks for weight management Total time spent today was 60 minutes of which greater than 50% was spent on coordinating and counseling Case discussed with collaborating physician Nighat Andrade who reviewed the assessment and plan. Chart, medications, labs, vital signs reviewed. Dictation was accomplished with the use of [employer] voice recognition software, prone to medical misidentifications and grammatical errors. This is unintentional and the practitioner does try to identify and correct these, but some could still be present. Please do not hesitate to contact practitioner for clarification. All questions answered to patients satisfaction. Patient verbalized understanding of diagnosis and treatments explained. To call sooner prior to next visit it any questions/concerns arise. 06/30/2025 Nutritional counseling (ICD-10 - Z71.3) Xuan is a 39-year-old female with history of obesity who presents to the office today for weight management consult. Medical history, labs, allergies, medications, and social history reviewed with the patient. Provided education on healthy diet and lifestyle which includes high-protein, low carbohydrate, high-fiber, and a variety of fruits and vegetables. Patient encouraged to exercise with emphasis on resistance training minimum 3 times per week to maintain muscle mass and cardio to burn fat. All patient questions answered. Patient will follow-up in 2 to 4 weeks for weight management. 06/30/2025: 218 pounds, BMI 34.14. Seca scan completed and discussed results with the patient. On body composition analysis 48% of body weight is fat mass amounting 105 pounds. Muscle mass amounts to 54 pounds which is increased. Visceral adiposity of 2.0 L. Patient previously was on GLP-1 for treatment of obesity, had a trial of Mounjaro, Zepbound and Ozempic. Reports that with Ozempic she experienced significant GI side effects. States that insurance is no longer covering Zepbound. Will trial Mounjaro for off-label treatment of obesity. Will initiate dose of 5 mg, stepdown from 7.5 mg 2 months ago. Discussed also diet and exercise. She will follow-up in 4 to 6 weeks. # ADHD: Continue Adderall 25 mg once daily. Patient was reassured and welcomed to the practice. We discussed that we stress a hollistic medical approach with emphasis on lifestyle modification. Patient was informed that a healthy lifestyle with exercise and good eating habits can help reduce their risk of medical complications. Patient is explained that obesity increases their risk of diabetes, cardiovascular disease, or organ [...] for weight management. Patient was offered diagnostic testing/ SECA scale. We want to measure visceral adiposity, advanced body composition, adverse lipids, fatty acid balance, risk for heart disease and atherosclerosis, markers of inflammation and genetic susceptibility. Patient was counseled on weight management and was advised to lose weight using A. Meal Replacement Products Patient was educated on the replacement products called optifast. This is a good way of taking fixed amount of calories. It has been shown in studies to be ineffective weight management tool. This however has to be coupled with [...] diet. Eliminate refined carbohydrates from the diet. Limit sugared beverages. Eat local organic when possible. Cook your own meals. Read food labels. Focus on healthy snacks. Portion control and food with low glycemic index 2. Exercise regularly. Try to get at least 6000 steps a day. Use a predominant to track activity level. Consider using apps like 7 minute excercise, [employer] Arbpal, lose it, stick as needed for self-monitoring and weight management. Consider group exercises. Consider hiring a green jobs trainer. Regular exercise is acevedo to sustainable health and prevents as a buffer against weight regain 3. Sleep is most important for healing. Try to sleep at least 6-8 hours a night. A good quality sleep needs a sleep ritual with ideal room temperature of around 68. It might help to take a shower and have no electronics in the room and sleep in a very dark room without artificial light. Start sleep routine and get up early in the morning and go to bed on time. 4. Make a social connection. Surround yourself [...] phentermine, Topamax,Qsymia, contrave, belviq and saxenda, wegovy etc. All prescription medications could have side effects including but not limited to kidney stones, seizure disorder cardiac arrhythmias heart attack pancreatitis, GI effects, Etc. Patient was encouraged to read the prescription insert and have coaching with their pharmacist and make an informed decision about taking medication and know that these medications are being prescribed with good intentions and we do not know how a patient would react to the medication. Some medications are FDA approved for weight loss and there is also off label use depending on patient's inability to afford medications in an attempt to lose weight D. Behavioral counseling was done to establish a relationship between food and an mood. Patient was provided information about local counseling and psychiatry and Dr Billingsley at [facility]. We would like to cover regular topics [...] management H. Patient will follow up in 4 weeks for weight management Total time spent today was 60 minutes of which greater than 50% was spent on coordinating and counseling Case discussed with collaborating physician Nighat Andrade who reviewed the assessment and plan. Chart, medications, labs, vital signs reviewed. Dictation was accomplished with the use of [employer] voice recognition software, prone to medical misidentifications and grammatical errors. This is unintentional and the practitioner does try to identify and correct these, but some could still be present. Please do not hesitate to contact practitioner for clarification. All questions answered to patients satisfaction. Patient verbalized understanding of diagnosis and treatments explained. To call sooner prior to next visit it any questions/concerns arise. 06/30/2025 Encounter for examination of blood pressure without abnormal findings (ICD-10 - Z01.30) Xuan is a 39-year-old female with history of obesity who presents to the office today for weight management consult. Medical history, labs, allergies, medications, and social history reviewed with the patient. Provided education on healthy diet and lifestyle which includes high-protein, low carbohydrate, high-fiber, and a variety of fruits and vegetables. Patient encouraged to exercise with emphasis on resistance training minimum 3 times per week to maintain muscle mass and cardio to burn fat. All patient questions answered. Patient will follow-up in 2 to 4 weeks for weight management. 06/30/2025: 218 pounds, BMI 34.14. Seca scan completed and discussed results with the patient. On body composition analysis 48% of body weight is fat mass amounting 105 pounds. Muscle mass amounts to 54 pounds which is increased. Visceral adiposity of 2.0 L. Patient previously was on GLP-1 for treatment of obesity, had a trial of Mounjaro, Zepbound and Ozempic. Reports that with Ozempic she experienced significant GI side effects. States that insurance is no longer covering Zepbound. Will trial Mounjaro for off-label treatment of obesity. Will initiate dose of 5 mg, stepdown from 7.5 mg 2 months ago. Discussed also diet and exercise. She will follow-up in 4 to 6 weeks. # ADHD: Continue Adderall 25 mg once daily. Patient was reassured and welcomed to the practice. We discussed that we stress a hollistic medical approach with emphasis on lifestyle modification. Patient was informed that a healthy lifestyle with exercise and good eating habits can help reduce their risk of medical complications. Patient is explained that obesity increases their risk of diabetes, cardiovascular disease, or organ [...] for weight management. Patient was offered diagnostic testing/ SECA scale. We want to measure visceral adiposity, advanced body composition, adverse lipids, fatty acid balance, risk for heart disease and atherosclerosis, markers of inflammation and genetic susceptibility. Patient was counseled on weight management and was advised to lose weight using A. Meal Replacement Products Patient was educated on the replacement products called optifast. This is a good way of taking fixed amount of calories. It has been shown in studies to be ineffective weight management tool. This however has to be coupled with [...] diet. Eliminate refined carbohydrates from the diet. Limit sugared beverages. Eat local organic when possible. Cook your own meals. Read food labels. Focus on healthy snacks. Portion control and food with low glycemic index 2. Exercise regularly. Try to get at least 6000 steps a day. Use a predominant to track activity level. Consider using apps like 7 minute excercise, myfitnesspal, lose it, stick as needed for self-monitoring and weight management. Consider group exercises. Consider hiring a green jobs trainer. Regular exercise is acevedo to sustainable health and prevents as a buffer against weight regain 3. Sleep is most important for healing. Try to sleep at least 6-8 hours a night. A good quality sleep needs a sleep ritual with ideal room temperature of around 68. It might help to take a shower and have no electronics in the room and sleep in a very dark room without artificial light. Start sleep routine and get up early in the morning and go to bed on time. 4. Make a social connection. Surround yourself [...] phentermine, Topamax,Qsymia, contrave, belviq and saxenda, wegovy etc. All prescription medications could have side effects including but not limited to kidney stones, seizure disorder cardiac arrhythmias heart attack pancreatitis, GI effects, Etc. Patient was encouraged to read the prescription insert and have coaching with their pharmacist and make an informed decision about taking medication and know that these medications are being prescribed with good intentions and we do not know how a patient would react to the medication. Some medications are FDA approved for weight loss and there is also off label use depending on patient's inability to afford medications in an attempt to lose weight D. Behavioral counseling was done to establish a relationship between food and an mood. Patient was provided information about local counseling and psychiatry and Dr Billingsley at [facility]. We would like to cover regular topics [...] management H. Patient will follow up in 4 weeks for weight management Total time spent today was 60 minutes of which greater than 50% was spent on coordinating and counseling Case discussed with collaborating physician Nighat Andrade who reviewed the assessment and plan. Chart, medications, labs, vital signs reviewed. Dictation was accomplished with the use of [employer] voice recognition software, prone to medical misidentifications and grammatical errors. This is unintentional and the practitioner does try to identify and correct these, but some could still be present. Please do not hesitate to contact practitioner for clarification. All questions answered to patients satisfaction. Patient verbalized understanding of diagnosis and treatments explained. To call sooner prior to next visit it any questions/concerns arise. Plan Of Treatment No Information Insurance Providers Payer Name Payer Address Payer Phone Subscriber Number Group Number Insured Name Patient Relationship to Insured Coverage Start Date Coverage End Date [facility] [address] [place] [address] [phone] [id number] Xuan Newberry Self - patient is the insured
== END 2025-08-30 14:56 | disposition home or self-care (01) ==
PROVIDERS: PCP Internal Medicine; Visit Provider Internal Medicine
DX: B02.30 Zoster ocular disease, unspecified (principal); R59.0 Localized enlarged lymph nodes; M54.2 Cervicalgia